=== PATIENT | male | born 1985 | race Caucasian/White ===

== ENCOUNTER 2016-08-04 17:14 | Inpatient (IN) | payer OTHER ==
[2016-08-04 21:58] VITALS: BMI 24.7
--- NOTE | 2016-08-04 22:01 | HP ---
COWS - Scale Resting Pulse: 1= [place] 81-100 Sweatin=Flushed/Facial Moisture Restless Observation: 1= Difficult to Sit Still Pupil Size: 0= Normal to Room Light Bone or Joint Aches: 1= Mild Discomfort Runny Nose/ Eye Tearin= Runny Nose/Eyes GI Upset > 30mins: 2= Nausea/Diarrhea Tremor Observation: 1= Tremor [place], Not Seen Yawning Observation: 0= None Anxiety or Irritability: 1=Feels Anxious/Irritable Goose Flesh Skin: 3=Piloerection COWS Score: 14 CIWA Score - CIWA Score Nausea/Vomitin Muscle Tremors: 2 Anxiety: 2 Agitation: 2 Paroxysmal Sweats: 2 Orientation: 1-Uncertain about Date Tacttile Disturbances: 1-Very Mild Itch/Numbness Auditory Disturbances: 0-None Visual Disturbances: 0-None Headache: 2-Mild CIWA-Ar Total Score: 14 Admission [facility] Chief Complaint: WITHDRAWAL SYMPTOMS Allergies/Adverse Reactions: Allergies Allergy/AdvReac Type Severity Reaction Status Date / Time No Known Allergies Allergy Verified 08/04/16 21:57 History of Present Illness: 31 Y.O. MAN WITH A 5 YEAR HISTORY OF ALCOHOL AND OPIOID DEPENDENCE IS HERE FOR DETOX. THIS IS HIS FIRST ADMISSION TO [facility] BUT REPORTS HE WAS AT [facility] 2 MONTHS AGO FOR DETOX & REHAB. Exam Limitations: No Limitations - Ebola screening Have you traveled outside of the country in the last 21 days: No Have you had contact with anyone from an Ebola affected area: No Do you have a fever: No - Review of Systems Constitutional: Chills, Diaphoresis, Malaise, Night Sweats, Changes in sleep EENT: reports: Tearing, Nose Congestion Respiratory: reports: No Symptoms reported Cardiac: reports: No Symptoms Reported GI: reports: Nausea, Abdominal cramping : reports: No Symptoms Reported Musculoskeletal: reports: Back Pain Integumentary: reports: No Symptoms Reported Neuro: reports: Headache, Tremors Endocrine: reports: No Symptoms Reported Hematology: reports: No Symptoms Reported Psychiatric: reports: Mood/Affect Appropiate, Anxious, other (INSOMNIA) Other Systems: Reviewed and Negative Patient History - Patient Medical History Hx Anemia: No Hx Asthma: No Hx Chronic Obstructive Pulmonary Disease (COPD): No Hx Cancer: No Hx Cardiac Disorders: No Hx Congestive Heart Failure: No Hx Hypertension: No Hx Hypercholesterolemia: No Hx Pacemaker: No HX Cerebrovascular Accident: No Hx Seizures: No Hx Dementia: No Hx Diabetes: No Hx Gastrointestinal Disorders: Yes (GERD ) Hx Liver Disease: No Hx Genitourinary Disorders: No Hx Sexually Transmitted Disorders: No Hx Renal Disease (ESRD): No Hx Thyroid Disease: No Hx Human Immunodeficiency Virus (HIV): No (NEG ) Hx Hepatitis C: No (NEG ) Hx Depression: Yes Hx Suicide Attempt: No Hx Bipolar Disorder: No Hx Schizophrenia: No - Patient Surgical History Past Surgical History: No - PPD History Previous Implant?: Yes Documented Results: Negative w/o proof PPD to be Administered?: Yes - Reproductive History Patient is a Female of Child Bearing Age (11 -55 yrs old): No - Smoking Cessation Smoking history: Current every day smoker Have you smoked in the past 12 months: Yes Aproximately how many cigarettes per day: 3 Hx Chewing Tobacco Use: No Initiated information on smoking cessation: Yes 'Breaking Loose' booklet given: 08/04/16 - Substance & Tx. History Hx Alcohol Use: Yes Hx Substance Use: Yes Substance Use Type: Alcohol, Heroin Hx Substance Use Treatment: Yes - Substances Abused Alcohol Route: Oral Frequency: Daily Amount used: 1 6 PACK OF BEER DAILY Age of first use: 17 Date of Last Use: 08/04/16 Heroin Route: Inhalation Frequency: Daily Amount used: 1 BUNDLE Age of first use: 24 Date of Last Use: 08/04/16 Family Disease History - Family Disease History Family Disease History: Diabetes: Grandparent, CA: Mother Admission Physical Exam BHS - Vital Signs Vital Signs: Last Vital Signs Temp Pulse Resp BP Pulse Ox 97.0 F L 87 20 120/79 08/04/16 21:54 08/04/16 21:54 08/04/16 21:54 08/04/16 21:54 - Physical General Appearance: Yes: Irritable, Anxious HEENTM: Yes: Hearing grossly Normal, Normocephalic, Normal Voice Respiratory: Yes: Lungs Clear, Normal Breath Sounds, No Respiratory Distress, No Accessory Muscle Use Neck: Yes: No masses,lesions,Nodules Breast: Yes: Breast Exam Deferred Cardiology: Yes: Regular Rhythm, Regular Rate Abdominal: Yes: Flat, Soft Genitourinary: Yes: Other (NO COMPLAINTS REPORTED) Back: Yes: Normal Inspection Musculoskeletal: Yes: Back pain Extremities: Yes: Normal Inspection, Normal Range of Motion, Non-Tender Neurological: Yes: Alert, Normal Mood/Affect, Normal Response Integumentary: Yes: Normal Color, Dry, Warm Lymphatic: Yes: Within Normal Limits - Addiitonal Findings: Last Vital Signs Temp Pulse Resp BP Pulse Ox 97.0 F L 87 20 120/79 08/04/16 21:54 08/04/16 21:54 08/04/16 21:54 08/04/16 21:54 - Diagnostic (1) Alcohol dependence with uncomplicated withdrawal Current Visit: Yes Status: Chronic (2) Opioid dependence with withdrawal Current Visit: Yes Status: Chronic (3) GERD (gastroesophageal reflux disease) Current Visit: Yes Status: Chronic Cleared for Admission S - Detox or Rehab [facility] Level of Care: Medically Managed Detox Regimen/Protocol: Methadone/Librium
[2016-08-04] MEDS ORDERED: MAGNESIUM HYDROX 2400MG/30ML ORAL SUSPENSION 30 ML CUP PO PRN (22:08)
[2016-08-04] MEDS ORDERED: MAG HYDROX/AL HYDROX/SIMETH 30 ML UNIT-DOSE CUP PO PRN (22:08)
[2016-08-04] MEDS ORDERED: METHADONE HCL 10 MG TABLET (FOR DETOX USE ONLY) PO ONE ×2 (22:08→23:00)
[2016-08-04] MEDS ORDERED: guaiFENesin/D-METHORPHAN HB 10 ML UNIT-DOSE CUPS PO PRN (22:08)
[2016-08-04] MEDS ORDERED: IBUPROFEN 400 MG TABLET (FP) PO PRN (22:08)
[2016-08-04] MEDS ORDERED: hydrOXYzine PAMOATE 50 MG CAPSULE (FP) PO PRN (22:08)
[2016-08-04] MEDS ORDERED: chlordiazePOXIDE HCL 25 MG CAPSULE PO PRN (22:08)
[2016-08-04] MEDS ORDERED: MENTHOL/PHENOL 1 EACH UD MM PRN (22:08)
[2016-08-04] MEDS ORDERED: ACETAMINOPHEN 325 MG TABLET (FP) PO PRN (22:08)
[2016-08-04] MEDS ORDERED: chlordiazePOXIDE HCL 25 MG CAPSULE PO ONE (22:08)
[2016-08-04] MEDS ORDERED: LOPERAMIDE HCL 2 MG CAPSULE PO PRN (22:08)
[2016-08-04] MEDS ORDERED: MAGNESIUM CITRATE 300 ML BOTTLE PO PRN (22:08)
[2016-08-04] MEDS ORDERED: P-EPHED 60MG/TRIPROLIDI 2.5MG TABLET PO PRN (22:08)
[2016-08-04] MEDS: chlordiazePOXIDE HCL 25 MG CAPSULE PO SCH (23:14)
[2016-08-05] MEDS: chlordiazePOXIDE HCL 25 MG CAPSULE PO SCH ×4 (05:15→22:02)
--- NOTE | 2016-08-05 09:51 | EKG ---
Test Reason : Blood Pressure : / mmHG Vent. Rate : 076 BPM Atrial Rate : 076 BPM P-R Int : 140 ms QRS Dur : 092 ms QT Int : 394 ms P-R-T Axes : 059 063 045 degrees QTc Int : 443 ms NORMAL SINUS RHYTHM NO PREVIOUS ECGS AVAILABLE Confirmed by SYMONE PAREDES MD ([id number]) on 08/05/2016 9:51:11 AM Referred By: Pedro Perez Confirmed By:SYMONE PAREDES MD
[2016-08-05] MEDS ORDERED: METHADONE HCL 10 MG TABLET (FOR DETOX USE ONLY) PO SCH (10:00)
[2016-08-05 10:21] LABS: MCH 29.6 pg (25.7-33.7); MCHC 34.4 g/dl (32.0-35.9); MEAN PLT VOLUME 9.3 fl (7.5-11.1); PLATELET COUNT 144 K/MM3 (134-434); RDW 14.1 % (11.9-15.9); WHITE BLOOD COUNT 4.5 K/mm3 (4.0-10.0)
[2016-08-05] MEDS: PANTOPRAZOLE 20 MG TABLET (FP) PO SCH (10:23)
[2016-08-05] MEDS: PRENATAL VITAMINS W/ FOLIC ACID TABLET (FP) PO SCH (10:23)
[2016-08-05] MEDS: NICOTINE 14 MG/24 HOURS TOPICAL PATCH TD SCH (10:24)
[2016-08-05 11:02] LABS: ALBUMIN 3.6 g/dl (3.4-5.0); ALK PHOS 91 U/L (45-117); ANION GAP 7 (8-16); BILIRUBIN,TOTAL 0.3 mg/dL (0.2-1.0); CALCIUM 8.8 mg/dL (8.5-10.1); CO2 30 mmol/L (21-32); COCKROFT - GAULT 137.59; CREATININE 0.9 mg/dL (0.7-1.3); GLUCOSE,RANDOM 92 mg/dL (74-106); SGOT/AST 27 U/L (15-37); SGPT/ALT 35 U/L (12-78); TOT PROT 6.7 g/dl (6.4-8.2)
--- NOTE | 2016-08-05 13:55 | PN ---
[facility] CIWA - CIWA Score Nausea/Vomitin-No Nausea/No Vomiting Muscle Tremors: 4-Moderate,w/Arms Extend Anxiety: 4-Mod. Anxious/Guarded Agitation: 3 Paroxysmal Sweats: 3 Orientation: 0-Oriented Tacttile Disturbances: 0-None Auditory Disturbances: 0-None Visual Disturbances: 0-None Headache: 0-None Present CIWA-Ar Total Score: 14 BHS COWS - Scale Resting Pulse: 0= MD 80 or Below Sweatin=Flushed/Facial Moisture Restless Observation: 1= Difficult to Sit Still Pupil Size: 0= Normal to Room Light Bone or Joint Aches: 2= Severe Diffuse Aches Runny Nose/ Eye Tearin= Nasal Congestion GI Upset > 30mins: 1= Stomach Cramp Tremor Observation of Outstretched Hands: 2= Slight Tremor Visible Yawning Observation: 2= >3x During Session Anxiety or Irritability: 2=Irritable/Anxious Goose Flesh Skin: 0=Smooth Skin COWS Score: 13 S Progress Note (SOAP) Subjective: shakes sweats interrupted seep body aches irritable Objective: 08/05/16 13:57 Vital Signs Temperature 97.5 F L 08/05/16 10:10 Pulse Rate 80 08/05/16 10:10 Respiratory Rate 16 08/05/16 10:10 Blood Pressure 117/64 08/05/16 10:10 O2 Sat by Pulse Oximetry (%) Laboratory Tests 08/05/16 08/05/16 08/05/16 07:50 07:50 07:50 WBC 4.5 RBC 4.57 Hgb 13.5 Hct 39.3 MCV 86.0 MCHC 34.4 RDW 14.1 Plt Count 144 MPV 9.3 Sodium 141 Potassium 4.0 Chloride 104 Carbon Dioxide 30 Anion Gap 7 L BUN 16 Creatinine 0.9 Creat Clearance w eGFR > 60 Random Glucose 92 Calcium 8.8 Total Bilirubin 0.3 AST 27 ALT 35 Alkaline Phosphatase 91 Total Protein 6.7 Albumin 3.6 RPR Titer Nonreactive labs pending awake/alert ambulating no acute distress Assessment: 08/05/16 13:59 withdrawal sx Plan: continue detox increase fluids labs pending
[2016-08-05 16:41] LABS: URINE APPEARANCE CLEAR; URINE BILIRUBIN NEGATIVE (NEGATIVE); URINE BLOOD NEGATIVE (NEGATIVE); URINE COLOR YELLOW; URINE GLUCOSE (UA) NEGATIVE (NEGATIVE); URINE KETONE NEGATIVE (NEGATIVE); URINE LEUK ESTERASE NEGATIVE (NEGATIVE); URINE NITRITE NEGATIVE (NEGATIVE); URINE PROTEIN NEGATIVE (NEGATIVE); URINE UROBILINOGEN NEGATIVE E.U./dl (0.2-1.0)
--- NOTE | 2016-08-05 17:22 | CONSULT ---
[facility] Psychiatric Consult - Data Date of interview: 08/05/16 Admission source: [facility] Identifying data: First admission to [facility] for this 31 y/o male seeking detox treatment for alcohol and heroin dependence.Patient is single without children,domiciled,unemployed and reportedly deprived of any source of income. Substance Abuse History: - Smoking Cessation. Smoking history: Current every day smoker. Have you smoked in the past 12 months: Yes. Aproximately how many cigarettes per day: 3. Hx Chewing Tobacco Use: No. Initiated information on smoking cessation: Yes. 'Breaking Loose' booklet given: 08/04/16. - Substance & Tx. History. Hx Alcohol Use: Yes. Hx Substance Use: Yes. Substance Use Type : Alcohol, Heroin. Hx Substance Use Treatment: Yes. - Substances Abused. Alcohol. Route: Oral. Frequency: Daily. Amount used: 1 6 PACK OF BEER DAILY. Age of first use: 17. Date of Last Use: 08/04/16. Heroin. Route: Inhalation. Frequency: Daily. Amount used: 1 BUNDLE. Age of first use: 24. Date of Last Use: 08/04/16. Confirmed by patient. Medical History: GERD. Psychiatric History: Patient denies. Physical/Sexual Abuse/Trauma History: Patient denies. Additional Comment: Utox not available. Mental Status Exam - Mental Status Exam Alert and Oriented to: Time, Place, Person Cognitive Function: Good Patient Appearance: Well Groomed Mood: Withdrawn, Hopeful Affect: Appropriate, Normal Range Patient Behavior: Fatigued, Cooperative Speech Pattern: Clear Voice Loudness: Normal Thought Process: Goal Oriented Thought Disorder: Not Present Hallucinations: Denies Suicidal Ideation: Denies Homicidal Ideation: Denies Insight/Judgement: Poor Sleep: Poorly, Difficulty falling asleep (requests seroquel ; admits to a history of favorable response ) Appetite: Good Muscle strength/Tone: Normal Gait/Station: Normal Psychiatric Findings - Problem List ([place] 1, 2,3) (1) Alcohol dependence with uncomplicated withdrawal Current Visit: Yes Status: Acute (2) Opioid dependence with withdrawal Current Visit: Yes Status: Acute (3) Nicotine dependence Current Visit: Yes Status: Acute (4) GERD (gastroesophageal reflux disease) Current Visit: Yes Status: Chronic (5) Insomnia Current Visit: Yes Status: Acute - Initial Treatment Plan Initial Treatment Plan: Psychoieducation.Detoxification.Seroquel 100 mg po hs.Courtesy Driver effects/benefits discussed with the patient.He agrees with this careplan.Observation.
[2016-08-05] MEDS: THIAMINE HCL 100 MG TABLET (FP) PO SCH (22:02)
[2016-08-05] MEDS: QUEtiapine FUMARATE 100 MG TABLET (FP) PO SCH ×2 (22:27→23:06)
[2016-08-06] MEDS: chlordiazePOXIDE HCL 25 MG CAPSULE PO SCH ×3 (05:23→17:23)
[2016-08-06] MEDS: METHADONE HCL 5 MG TABLET (FOR DETOX USE ONLY) PO SCH (10:30)
[2016-08-06] MEDS: PANTOPRAZOLE 20 MG TABLET (FP) PO SCH (10:30)
[2016-08-06] MEDS: PRENATAL VITAMINS W/ FOLIC ACID TABLET (FP) PO SCH (10:30)
[2016-08-06] MEDS: NICOTINE 14 MG/24 HOURS TOPICAL PATCH TD SCH (10:32)
[2016-08-06] MEDS: NICOTINE POLACRILEX 2 MG GUM BC PRN (10:33)
--- NOTE | 2016-08-06 14:47 | PN ---
[facility] CIWA - CIWA Score Nausea/Vomitin-Mild Nausea/No Vomiting Muscle Tremors: 4-Moderate,w/Arms Extend Anxiety: 4-Mod. Anxious/Guarded Agitation: 3 Paroxysmal Sweats: 3 Orientation: 0-Oriented Tacttile Disturbances: 0-None Auditory Disturbances: 0-None Visual Disturbances: 0-None Headache: 0-None Present CIWA-Ar Total Score: 15 BHS COWS - Scale Resting Pulse: 0= NC 80 or Below Sweatin=Flushed/Facial Moisture Restless Observation: 1= Difficult to Sit Still Pupil Size: 0= Normal to Room Light Bone or Joint Aches: 2= Severe Diffuse Aches Runny Nose/ Eye Tearin= Runny Nose/Eyes GI Upset > 30mins: 2= Nausea/Diarrhea Tremor Observation of Outstretched Hands: 2= Slight Tremor Visible Yawning Observation: 1= 1-2x During Session Anxiety or Irritability: 2=Irritable/Anxious Goose Flesh Skin: 0=Smooth Skin COWS Score: 14 S Progress Note (SOAP) Subjective: Anxiety,tremors,sweating,interrupted sleep,restless,body aches. Objective: 08/06/16 14:46 Vital Signs - 8 hr 08/06/16 08/06/16 10:00 14:18 Temperature 96.1 F L 98.1 F Pulse Rate 94 H 82 Respiratory 18 18 Rate Blood Pressure 116/75 113/69 Laboratory Tests 08/05/16 08/05/16 08/05/16 07:50 07:50 07:50 WBC 4.5 RBC 4.57 Hgb 13.5 Hct 39.3 MCV 86.0 MCHC 34.4 RDW 14.1 Plt Count 144 MPV 9.3 Sodium 141 Potassium 4.0 Chloride 104 Carbon Dioxide 30 Anion Gap 7 L BUN 16 Creatinine 0.9 Creat Clearance w eGFR > 60 Random Glucose 92 Calcium 8.8 Total Bilirubin 0.3 AST 27 ALT 35 Alkaline Phosphatase 91 Total Protein 6.7 Albumin 3.6 Urine Color Urine Appearance Urine pH Ur Specific [place] Urine Protein Urine Glucose (UA) Urine Ketones Urine Blood Urine Nitrite Urine Bilirubin Urine Urobilinogen Ur Leukocyte Esterase RPR Titer Nonreactive 08/05/16 14:30 WBC RBC Hgb Hct MCV MCHC RDW Plt Count MPV Sodium Potassium Chloride Carbon Dioxide Anion Gap BUN Creatinine Creat Clearance w eGFR Random Glucose Calcium Total Bilirubin AST ALT Alkaline Phosphatase Total Protein Albumin Urine Color Yellow Urine Appearance Clear Urine pH 7.0 Ur Specific [place] 1.020 Urine Protein Negative Urine Glucose (UA) Negative Urine Ketones Negative Urine Blood Negative Urine Nitrite Negative Urine Bilirubin Negative Urine Urobilinogen Negative Ur Leukocyte Esterase Negative RPR Titer labs noted Assessment: 08/06/16 14:46 Withdrawal sx. Plan: continue detox
[2016-08-06] MEDS: QUEtiapine FUMARATE 100 MG TABLET (FP) PO SCH (22:03)
[2016-08-06] MEDS: chlordiazePOXIDE 5 MG CAPSULE PO SCH (22:03)
[2016-08-06] MEDS: THIAMINE HCL 100 MG TABLET (FP) PO SCH (22:03)
[2016-08-06] MEDS ORDERED: RANITIDINE HCL 150 MG TABLET (FP) PO ONE (23:09)
[2016-08-07] MEDS: chlordiazePOXIDE 5 MG CAPSULE PO SCH ×3 (05:33→17:45)
[2016-08-07] MEDS: METHADONE HCL 5 MG TABLET (FOR DETOX USE ONLY) PO SCH (10:55)
[2016-08-07] MEDS: PRENATAL VITAMINS W/ FOLIC ACID TABLET (FP) PO SCH (10:55)
[2016-08-07] MEDS: NICOTINE 14 MG/24 HOURS TOPICAL PATCH TD SCH (10:55)
[2016-08-07] MEDS: PANTOPRAZOLE 20 MG TABLET (FP) PO SCH (10:58)
--- NOTE | 2016-08-07 11:48 | PN ---
BHS Progress Note (SOAP) Subjective: Sweating,interrupted sleep,restless Objective: 08/07/16 11:47 Vital Signs - 8 hr 08/07/16 08/07/16 06:00 10:00 Temperature 97.7 F 98.2 F Pulse Rate 54 L 107 H Respiratory 18 20 Rate Blood Pressure 109/59 111/65 Laboratory Tests 08/05/16 08/05/16 08/05/16 07:50 07:50 07:50 WBC 4.5 RBC 4.57 Hgb 13.5 Hct 39.3 MCV 86.0 MCHC 34.4 RDW 14.1 Plt Count 144 MPV 9.3 Sodium 141 Potassium 4.0 Chloride 104 Carbon Dioxide 30 Anion Gap 7 L BUN 16 Creatinine 0.9 Creat Clearance w eGFR > 60 Random Glucose 92 Calcium 8.8 Total Bilirubin 0.3 AST 27 ALT 35 Alkaline Phosphatase 91 Total Protein 6.7 Albumin 3.6 Urine Color Urine Appearance Urine pH Ur Specific [place] Urine Protein Urine Glucose (UA) Urine Ketones Urine Blood Urine Nitrite Urine Bilirubin Urine Urobilinogen Ur Leukocyte Esterase RPR Titer Nonreactive 08/05/16 14:30 WBC RBC Hgb Hct MCV MCHC RDW Plt Count MPV Sodium Potassium Chloride Carbon Dioxide Anion Gap BUN Creatinine Creat Clearance w eGFR Random Glucose Calcium Total Bilirubin AST ALT Alkaline Phosphatase Total Protein Albumin Urine Color Yellow Urine Appearance Clear Urine pH 7.0 Ur Specific [place] 1.020 Urine Protein Negative Urine Glucose (UA) Negative Urine Ketones Negative Urine Blood Negative Urine Nitrite Negative Urine Bilirubin Negative Urine Urobilinogen Negative Ur Leukocyte Esterase Negative RPR Titer labs noted Assessment: 08/07/16 11:47 Withdrawal sx. Plan: Continue detox
[2016-08-07] MEDS ORDERED: PANTOPRAZOLE 20 MG TABLET (FP) PO ONE (15:39)
[2016-08-07] MEDS ORDERED: RANITIDINE HCL 150 MG TABLET (FP) PO ONE (15:40)
[2016-08-07] MEDS: diphenhydrAMINE HCL 50 MG CAPSULE PO PRN (22:12)
[2016-08-07] MEDS: QUEtiapine FUMARATE 100 MG TABLET (FP) PO SCH (22:12)
[2016-08-07] MEDS: THIAMINE HCL 100 MG TABLET (FP) PO SCH (22:12)
[2016-08-07] MEDS: RANITIDINE HCL 150 MG TABLET (FP) PO SCH (22:42)
[2016-08-07] MEDS: chlordiazePOXIDE HCL 10 MG CAPSULE PO SCH (22:43)
[2016-08-07] MEDS: NICOTINE POLACRILEX 2 MG GUM BC PRN (22:58)
[2016-08-08] MEDS: chlordiazePOXIDE HCL 10 MG CAPSULE PO SCH ×3 (05:09→19:15)
--- NOTE | 2016-08-08 09:20 | PN ---
BHS Progress Note (SOAP) Subjective: feeling better little sweats Objective: 08/08/16 09:19 Vital Signs Temperature 97.3 F L 08/08/16 06:40 Pulse Rate 61 08/08/16 06:40 Respiratory Rate 16 08/08/16 06:40 Blood Pressure 102/63 08/08/16 06:40 O2 Sat by Pulse Oximetry (%) awake/alert ambulating no acute distress Assessment: 08/08/16 09:19 withdrawal sx Plan: continue detox increase fluids d/c in am
[2016-08-08] MEDS ORDERED: PANTOPRAZOLE 40 MG TABLET (FP) PO SCH (10:00)
[2016-08-08] MEDS ORDERED: METHADONE HCL 10 MG TABLET (FOR DETOX USE ONLY) PO SCH (10:00)
[2016-08-08] MEDS: NICOTINE 14 MG/24 HOURS TOPICAL PATCH TD SCH (10:08)
[2016-08-08] MEDS: PRENATAL VITAMINS W/ FOLIC ACID TABLET (FP) PO SCH (10:08)
[2016-08-08] MEDS: NICOTINE POLACRILEX 2 MG GUM BC PRN (10:09)
[2016-08-08] MEDS: RANITIDINE HCL 150 MG TABLET (FP) PO SCH ×2 (12:27→22:01)
[2016-08-08] MEDS: THIAMINE HCL 100 MG TABLET (FP) PO SCH (22:01)
[2016-08-08] MEDS: QUEtiapine FUMARATE 100 MG TABLET (FP) PO SCH (22:01)
[2016-08-08] MEDS: diphenhydrAMINE HCL 50 MG CAPSULE PO PRN (22:01)
[2016-08-09] MEDS ORDERED: METHADONE HCL 5 MG TABLET (FOR DETOX USE ONLY) PO SCH (06:00)
[2016-08-09 06:31] VITALS: BP 98/61; PULSE 81; TEMP 97.3
--- NOTE | 2016-08-09 08:44 | DS ---
[facility] Detox Discharge Summary Admission Date: 08/04/16 Discharge Date: 08/09/16 - History Present History: Alcohol Dependence, Opioid Dependence - Physical Exam Results Vital Signs: Vital Signs Temperature 97.3 F L 08/09/16 06:30 Pulse Rate 81 08/09/16 06:30 Respiratory Rate 18 08/09/16 06:30 Blood Pressure 98/61 08/09/16 06:30 O2 Sat by Pulse Oximetry (%) - Treatment Hospital Course: Detox Protocol Followed, Detoxed Safely, Responded well, Discharged Condition Good, Rehab Referral Accepted - Medication Discharge Medications: Ambulatory Orders Quetiapine Fumarate [Seroquel -] 100 mg PO HS 08/04/16 Quetiapine Fumarate [Seroquel] 100 mg PO HS #30 tablet 08/05/16 - Diagnosis (1) Alcohol dependence with uncomplicated withdrawal Current Visit: Yes Status: Chronic (2) Insomnia Current Visit: Yes Status: Chronic (3) Nicotine dependence Current Visit: Yes Status: Chronic Qualifiers: Nicotine product type: cigarettes Substance use status: uncomplicated Qualified Code(s): F17.210 - Nicotine dependence, cigarettes, uncomplicated (4) Opioid dependence with withdrawal Current Visit: Yes Status: Chronic (5) GERD (gastroesophageal reflux disease) Current Visit: Yes Status: Chronic Qualifiers: Esophagitis presence: without esophagitis Qualified Code(s): K21.9 - Gastro-esophageal reflux disease without esophagitis - AMA Did Patient Leave Against Medical Advice: No
== END 2016-08-09 09:46 | disposition home or self-care (01) | DRG 773 ==
LOC: YASAS 17:14 → Y6N 22:12
PROVIDERS: ADMIT Internal Medicine; ATTEND Internal Medicine
PROC: HZ2ZZZZ Detoxification Services for Substance Abuse Treatment (ICD-10-PCS; principal; 2016-08-09)
DX: F11.23 Opioid dependence with withdrawal (principal); F10.230 Alcohol dependence with withdrawal, uncomplicated; F17.210 Nicotine dependence, cigarettes, uncomplicated; G47.00 Insomnia, unspecified; F32.9 Major depressive disorder, single episode, unspecified; K21.9 Gastro-esophageal reflux disease without esophagitis
CPT/HCPCS: 36415; 80053; 81003; 85027; 86593; 93005; 93010

== ENCOUNTER 2019-10-01 16:52 | Inpatient (IN) | payer OTHER ==
[2019-10-01 17:08] VITALS: BMI 24.3
--- NOTE | 2019-10-01 17:12 | PDOC ---
History of Present Illness - General Chief Complaint: Overdose Stated Complaint: OVERDOSE - History of Present Illness Initial Comments: 10/01/19 17:07 34 y/o M KEO from [facility]. Pt lost consciousness at [facility] and was given 4mg intranasal narcan and regained consciousnees. was able to leave the facility, but returned and syncopized again. alert and oriented enough at the time of EMS arrival, to walk onto the stretcher. pt appears ethargic but is arousable to sternal rub and painful stimuli. unable to obtain further hx at this time. PMHx: as noted above ROS: as noted SHx: Denies Etoh, IVDA, tobacco use Allergies: NKDA ROS: GENERAL/CONSTITUTIONAL: No fever or chills. No weakness. HEAD, EYES, EARS, NOSE AND THROAT: No change in vision. No ear pain or discharge. No sore throat. CARDIOVASCULAR: No chest pain or shortness of breath RESPIRATORY: No cough, wheezing, or hemoptysis. GASTROINTESTINAL: No nausea, vomiting, diarrhea or constipation. GENITOURINARY: No dysuria, frequency, or change in urination. MUSCULOSKELETAL: No joint or muscle swelling or pain. No neck or back pain. SKIN: No rash NEUROLOGIC: No headache, vertigo, loss of consciousness, or change in strength/sensation. ENDOCRINE: No increased thirst. No abnormal weight change HEMATOLOGIC/LYMPHATIC: No anemia, easy bleeding, or history of blood clots. ALLERGIC/IMMUNOLOGIC: No hives or skin allergy. PE: GENERAL: lethargic but arousable. HEAD: No signs of trauma, normocephalic, atraumatic EYES: pinpoint pupils. reactive to light ENT: Auricles normal inspection, nares patent, oropharynx clear without exudates. Moist mucosa NECK: Normal ROM, supple, no lymphadenopathy, JVD, or masses LUNGS: clear to auscultation bilaterally HEART: Regular rate and rhythm, normal S1 and S2, no murmurs, rubs or gallops, peripheral pulses normal and equal bilaterally. ABDOMEN: Soft, nontender, normoactive bowel sounds. No guarding, no rebound. No masses EXTREMITIES : bruising right anterior manley and right anecubittal fossa. NEUROLOGICAL: pt responds to painful stimuli.pupils pinpoint but reactive to light. SKIN: Warm, Dry, normal turgor, no rashes or lesions noted Past History - Medical History Allergies/Adverse Reactions: Allergies Allergy/AdvReac Type Severity Reaction Status Date / Time No Known Allergies Allergy Verified 08/04/16 21:57 Home Medications: Ambulatory Orders Quetiapine Fumarate [Seroquel -] 100 mg PO HS 08/04/16 Quetiapine Fumarate [Seroquel] 100 mg PO HS #30 tablet 08/05/16 Pantoprazole Sodium [Protonix -] 40 mg PO DAILY #30 cap 08/09/16 Folic Acid 1 mg PO DAILY #30 tablet 10/03/19 Multivitamin 1 each PO DAILY #30 tablet 10/03/19 Thiamine HCl [Vitamin B-1] 100 mg PO DAILY #30 tablet 10/03/19 Anemia: No Asthma: No Cancer: No Cardiac Disorders: No CVA: No COPD: No CHF: No Dementia: No Diabetes: No GI Disorders: Yes (GERD ) Disorders: No HTN: No Hypercholesterolemia: No Kidney Stones: No Liver Disease: No Seizures: No Thyroid Disease: No - Surgical History Abdominal Surgery: No Appendectomy: No Cardiac Surgery: No Cholecystectomy: No Lung Surgery: No Neurologic Surgery: No Orthopedic Surgery: No - Reproductive History Testicular Surgery: No - Psycho-Social/Smoking History Smoking History: Current every day smoker Have you smoked in the past 12 months: Yes Number of Cigarettes Smoked Daily: 3 'Breaking Loose' booklet given: 08/04/16 ED Treatment Course - LABORATORY CBC & Chemistry Diagram: 10/03/19 07:45 10/03/19 07:45 Medical Decision Making - Medical Decision Making 10/01/19 17:12 34 y/o M BIBEMS from [facility]. Pt lost consciousness at [facility] and was given 4mg intranasal narcan and regained consciousnees. utox head ct cardiac monitoring, etco2 monitoring. 10/01/19 18:29 utox positive for methadone and methamphetamine 10/01/19 20:59 Ct cervical spine shows non displaced ununited fractures of C1 right anterior and posterior neural arches or uncertain acuity. fracture at c-spine at C1 Tigre Martinez neurosurgeon contacted, for consult. 10/01/19 21:45 PT increasingly agitated, insists there is a parasite in his nose 10/01/19 22:37 Neurosurgeon recommending admission for MRI and furthera evaluation received ketamine IM for agitation and being uncooperative pt to be admitted for mri and further evalutation. detox orders can be administered for [facility] if he is admitted. Pt signed out to Dr. Albert 10/04/19 20:22 Discharge - Discharge Information Problems reviewed: Yes Clinical Impression/Diagnosis: Substance abuse C1 cervical fracture Qualifiers: Encounter type: initial encounter Fracture type: closed Fracture morphology: unspecified fracture morphology Fracture alignment: nondisplaced Qualified Code(s): S12.001A - Unspecified nondisplaced fracture of first cervical vertebra, initial encounter for closed fracture Condition: Stable Disposition: AGAINST MEDICAL ADVICE - Follow up/Referral - Patient Discharge Instructions - Post Discharge Activity
[2019-10-01 18:07] LABS: COCAINE, UR NEGATIVE ng/ml (CUTOFF=300); OPIATES, URI NEGATIVE ng/ml (CUTOFF=300); PHENCYCLIDINE,URINE NEGATIVE ng/ml (CUTOFF=25); URINE BARBITURATES NEGATIVE ng/ml (CUTOFF=200); URINE BENZODIAZEPINES NEGATIVE ng/ml (CUTOFF=200)
[2019-10-01 18:22] LABS: METHADONE, UR POSITIVE ng/ml (CUTOFF=300); URINE AMPHETAMINES POSITIVE ng/ml (CUTOFF=500)
--- NOTE | 2019-10-01 18:31 | PDOC ---
Documentation entered by Kurtis Baker SCRIBE, acting as scribe for Jocelyn Landeros MD. Jocelyn Landeros MD: This documentation has been prepared by the Kenyon patel Xhesika, SCRIBE, under my direction and personally reviewed by me in its entirety. I confirm that the documentation accurately reflects all work, treatment, procedures, and medical decision making performed by me. Attending Attestation - Resident Resident Name: Leif Collado - ED Attending Attestation I have performed the following: I have examined & evaluated the patient, The case was reviewed & discussed with the resident, I agree w/resident's findings & plan, Exceptions are as noted - HPI HPI: 10/01/19 17:12 The patient is a 34y/o M with a PMH of alcohol/heroine dependence and GERD who presents to the ED BIBA from [facility] for overdose. Pt lost consciousness while at [facility], was given 4mg intranasal narcan and regained consciousness. Pt is unable to contribute to further history due to his condition. Allergies:NKDA - Physicial Exam PE: 10/01/19 18:28 slender 34 yo male BIBA after passing out while waiting to be evaluated for admission for detox at [facility] head no scalp lacerations neck supple lungs cta b/l cvs [id number] abdomen no rebound extremities no edema, no deformities skin warm and dry neuro pt received narcan and woke up, stood up and used the urinal ,moving all extremities purposefully 10/02/19 02:22 10/02/19 02:23 - Medical Decision Making 10/01/19 21:02 ct scan head negative for any acute intracranial pathology ct scan cervical spine revealed a nondisplaced ununited fractures of the C1 right anterior and posterior neural arches are noted which are of uncertain acuity Additional evaluation using MRI may be considered 10/01/19 21:05 10/01/19 21:[address] surgery [address] Bridgette Martinez and the pt need an MRI Currently he is not cooperating with us and has pulled out his heplock and is insistent he has a parasite in his nose that needs to be taken care off and he states his neck is fine will have to admit for MRI 10/01/19 22:21 pt has multiple substances on board and history of falling tonight with ct scan revealing C! neural arch fractures,uncooperative, and requiring MRI pt given ketamine 10/02/19 01:04 10/02/19 02:19 pt admitted ,wearing c collar Discharge - Discharge Information Problems reviewed: Yes Clinical Impression/Diagnosis: Substance abuse, C1 cervical fracture - Follow up/Referral - Patient Discharge Instructions - Post Discharge Activity
[2019-10-01] MEDS ORDERED: HALOPERIDOL LACTATE 5 MG/ML IM ONE (21:42)
[2019-10-01] MEDS ORDERED: HALOPERIDOL LACTATE 5 MG/ML ONE (21:46)
[2019-10-01] MEDS ORDERED: LORazepam 2 MG/ML SDV VIAL ONE (21:47)
[2019-10-01] MEDS ORDERED: KETAMINE HCL 500 MG/10 ML VIAL ONE (21:57)
[2019-10-01] MEDS ORDERED: KETAMINE HCL 200 MG/20 ML VIAL IM STA (21:59)
--- NOTE | 2019-10-01 22:29 | PDOC ---
*Physical Exam - Vital Signs Last Vital Signs Temp Pulse Resp BP Pulse Ox 97.5 F L 88 19 99/68 100 10/01/19 16:53 10/01/19 16:53 10/01/19 16:53 10/01/19 16:53 10/01/19 16:53 ED Treatment Course - LABORATORY CBC & Chemistry Diagram: 10/01/19 23:20 10/01/19 23:20 - ADDITIONAL ORDERS Additional order review: Laboratory Results 10/01/19 17:31 Opiates Screen Negative Methadone Screen Positive A* Barbiturate Screen Negative Phencyclidine Screen Negative Ur Amphetamines Screen Positive A* MDMA (Ecstasy) Screen Negative Benzodiazepines Screen Negative Cocaine Screen Negative U Marijuana (THC) Screen Negative - Medications Given in the ED: ED Medications Discontinued Medications Generic Name Dose Route Start Last Admin Trade Name Freq PRN Reason Stop Dose Admin Ketamine HCl 300 mg 10/01/19 21:59 10/01/19 22:20 Ketalar - IM 10/01/19 22:00 300 mg ONCE STA Administration Medical Decision Making - Medical Decision Making 10/01/19 22:26 Signed out to me by Dr. Collado. Ranjeet Martino is a 34M with [facility] polysubstance drug use presented to [facility] for drug rehab, had syncopal episode and sent to [facility]. CT head/c-spine shows C1 A/P fracture. Dr. Martinez with [facility] consulted, recommends admission and MRI. Patient refusing all care and is agitated, real risk of harm to self and staff. Patient given ketamine for anxiolysis and agitation. Plan is to get admission labs, CXR, ECG, c-collar placement, and then admit to Med Surg for NSRG f/u. 10/02/19 01:05 Ketamine wore off quickly, resting comfortably in bed and continually removes telemetry and moving in bed. Patient continues to refuse to wear c-collar despite advisory that paralysis could be permanent. Actively resists attempts to place. Signed out to Dr. Jairo Rodriguez at bedside for Med/Surg admission with AM MRI. 10/02/19 02:12 Patient remains agitated. Bief discussion again regarding c-collar, patient agrees. Placed in C-collar and given haldol and Ativan IM per patient request for anxiolysis. C-spine secured and patient remains on telemetry. Librium not given per IM order as patient given Ativan. Patient sleeping, closely monitoring VS. 10/02/19 06:07 Rested comfortably overnight, no acute events overnight, no tele events. C-collar remains in place and secured. Discharge - Discharge Information Problems reviewed: Yes Clinical Impression/Diagnosis: Substance abuse C1 cervical fracture Qualifiers: Encounter type: initial encounter Fracture type: closed Fracture morphology: unspecified fracture morphology Fracture alignment: nondisplaced Qualified Code(s): S12.001A - Unspecified nondisplaced fracture of first cervical vertebra, initial encounter for closed fracture - Follow up/Referral - Patient Discharge Instructions - Post Discharge Activity
[2019-10-01 23:36] LABS: BASO % 0.6 % (0-2.0); EOS % 0.8 % (0-4.5); HEMATOCRIT 37.4 % (35.4-49); HEMOGLOBIN 12.5 GM/dL (11.7-16.9); LYMPH % 31.1 % (8-40); MCH 30.5 pg (25.7-33.7); MCHC 33.4 g/dl (32.0-35.9); MEAN CELL VOLUME 91.4 fl (80-96); MEAN PLT VOLUME 8.2 fl (7.5-11.1); MONO % 9.8 % (3.8-10.2); NEUT % 57.7 % (42.8-82.8); PLATELET COUNT 220 K/MM3 (134-434); RDW 12.8 % (11.9-15.9)
[2019-10-02 00:12] LABS: ALBUMIN 3.3 g/dl (3.4-5.0); BILIRUBIN,TOTAL 0.3 mg/dL (0.2-1); BLOOD UREA NITROGEN 7.8 mg/dL (7-18); CALCIUM 8.7 mg/dL (8.5-10.1); CREATININE 0.7 mg/dL (0.55-1.3); POTASSIUM 3.3 mmol/L (3.5-5.1); TOT PROT 6.6 g/dl (6.4-8.2)
[2019-10-02] MEDS ORDERED: POTASSIUM CHLORIDE TABS 20 MEQ TABLET.ER (FP) PO ONE ×2 (00:48→01:37)
[2019-10-02] MEDS ORDERED: LACTATED RINGERS SOLUTION 1,000 ML IV SCH (01:45)
[2019-10-02] MEDS ORDERED: chlordiazePOXIDE HCL 10 MG CAPSULE PO PRN (01:54)
[2019-10-02] MEDS ORDERED: HALOPERIDOL LACTATE 5 MG/ML IM ONE (02:01)
--- NOTE | 2019-10-02 02:02 | HP ---
CHIEF COMPLAINT: loss of consciousness because of possible overdose PCP:?? HISTORY OF PRESENT ILLNESS: Pt is a 34 yo M with PMH of polysubstance abuse (alcohol and opioid - i.e. heroin) and GERD who was BIBEMS from [facility] after the pt lost consciousness 2/2 a likely overdose. The pt was found to first lose consciousness at [facility], for which he was treated with 4mg of intranasal narcan and regained consciousness. The pt then left the facility but arrived at [facility] again and syncopized again. Pt was noted to be lethargic but arousable on arrival to the ED. Pt reports some difficulty sitting still, some mild discomfort, mild nasal congestion, mild diffuse bone/joint aches, increased anxiousness and feeling irritable. Denies diaphoresis, tremor, n/v, tactile/visual/auditory disturbances, and fatigue/yawning. Hx is limited as pt is poor historian and refusal to participate in history taking at times. Pt found have non-displaced, ununited fracture of C1 on CT of cervical spine. Pt refusing to wear cervical collar and also noted to pull out his IV twice in the ED. Denies pain in cervical region. ER course was notable for: (1)utox + for methadone and methamphetamine (2)CT cervical spine shows non displaced ununited fractures of C1 right anterior and posterior neural arches of uncertain acuity. fracture at c-spine at C1 (3)received ketamine IM for agitation and being uncooperative; given ativan as well Recent Travel: none PAST MEDICAL HISTORY: as per HPI PAST SURGICAL HISTORY: none FAMILY HISTORY: non-contributory Social History: hx of polysusbtance abuse Smoking: denies Alcohol: limited hx; reports having "hard liquor like vodka" yesterday Drugs: reports heroine and xanax use; reports "dabbling" with other recreational drugs but refuses to name other drugs Allergies No Known Allergies Allergy (Verified 08/04/16 21:57) HOME MEDICATIONS: Home Medications Medication Instructions Recorded Quetiapine Fumarate [Seroquel -] 100 mg PO HS 08/04/16 Quetiapine Fumarate [Seroquel] 100 mg PO HS #30 tablet 08/05/16 Pantoprazole Sodium [Protonix -] 40 mg PO DAILY #30 cap 08/09/16 REVIEW OF SYSTEMS As per HPI. PHYSICAL EXAMINATION Vital Signs - 24 hr 10/01/19 16:53 Temperature 97.5 F L Pulse Rate 88 Respiratory 19 Rate Blood Pressure 99/68 O2 Sat by Pulse 100 Oximetry (%) GENERAL: Awake, alert, and fully oriented; appears mildly agitated and anxious HEAD: NCAT EYES: PERRLA, EOMI, sclera white, conjunctiva clear. EARS, NOSE, THROAT: Oropharynx clear without exudates. Moist mucous membranes. Intranasal erythema noted. Neck: Supple; trachea midline; no paraspinal or spinal tenderness to palpation of cervical region LUNGS: Breath sounds equal, clear to auscultation bilaterally. No wheezes, and no crackles. No accessory muscle use. HEART: Regular rate and rhythm, normal S1 and S2 without murmur, rub or gallop. ABDOMEN: Soft, nontender, not distended, normoactive bowel sounds MUSCULOSKELETAL: moving all extremities spontaneously and equally UPPER EXTREMITIES: 2+ pulses, warm, well-perfused. Pt with chronic swelling of R elbow 2/2 to trauma, no echymosis appreciated LOWER EXTREMITIES: 2+ pulses, warm, well-perfused. No calf tenderness. No peripheral edema. NEUROLOGICAL: Sensation grossly intact. PSYCHIATRIC: pt agitated, non-cooperative SKIN: Warm, dry, no rashes or lesions noted Laboratory Results - last 24 hr 10/01/19 10/01/19 10/01/19 17:31 23:20 23:20 WBC 4.0 RBC 4.10 Hgb 12.5 Hct 37.4 MCV 91.4 MCH 30.5 MCHC 33.4 RDW 12.8 Plt Count 220 D MPV 8.2 D Absolute Neuts (auto) 2.3 Neutrophils % 57.7 Lymphocytes % 31.1 Monocytes % 9.8 Eosinophils % 0.8 Basophils % 0.6 Nucleated RBC % 0 Sodium Potassium Chloride Carbon Dioxide Anion Gap BUN Creatinine Est GFR (CKD-EPI)AfAm Est GFR (CKD-EPI)NonAf Random Glucose Calcium Total Bilirubin AST ALT Alkaline Phosphatase Total Protein Albumin Opiates Screen Negative Methadone Screen Positive A* Acetaminophen < 2.0 Barbiturate Screen Negative Phencyclidine Screen Negative Ur Amphetamines Screen Positive A* MDMA (Ecstasy) Screen Negative Benzodiazepines Screen Negative Cocaine Screen Negative U Marijuana (THC) Screen Negative Blood Type Antibody Screen 10/01/19 10/01/19 23:20 23:20 WBC RBC Hgb Hct MCV MCH MCHC RDW Plt Count MPV Absolute Neuts (auto) Neutrophils % Lymphocytes % Monocytes % Eosinophils % Basophils % Nucleated RBC % Sodium 146 H Potassium 3.3 L Chloride 111 H Carbon Dioxide 26 Anion Gap 9 BUN 7.8 Creatinine 0.7 Est GFR (CKD-EPI)AfAm 141.70 Est GFR (CKD-EPI)NonAf 122.26 Random Glucose 113 H Calcium 8.7 Total Bilirubin 0.3 AST 55 H ALT 50 Alkaline Phosphatase 114 Total Protein 6.6 Albumin 3.3 L Opiates Screen Methadone Screen Acetaminophen Barbiturate Screen Phencyclidine Screen Ur Amphetamines Screen MDMA (Ecstasy) Screen Benzodiazepines Screen Cocaine Screen U Marijuana (THC) Screen Blood Type B POSITIVE Antibody Screen Negative ASSESSMENT/PLAN: Pt is a 34 yo M with PMH of polysubstance abuse (alcohol and opioid - i.e. heroin) being admitted for further evaluation of ununited fractures of C1 right anterior and posterior neural arches. #Cervical Fracture s/p mechanical fall vs chronic cervical spondylosis CT Cervical Spine - ununited fractures of C1 right anterior and posterior neural arches; mild L C3-C4 foraminal stenosis - MRI C-Spine without contrast to further eval fracture - Neurosurgery (Dr. Tigre Martinez) consulted; will evaluate pt - CK found to be elavated (>700) - cannot r/o rhabdo; LR @125 cc/hr #Polysubstance Abuse (notable for EtOH, opioids - i.e. heroine) COWS score 10; CIWA score 2 - methadone 150 daily - librium prn for CIWA > 6 - monitor for changes in COWS + CIWA score - folic acid, thiamine #DVT PPx - enoxaparin 40 sq daily #FEN -F - LR 125 cc/hr -E - monitor lytes; replete prn -N - regular diet #Dispo - admit to med-surg Visit type - Emergency Visit Emergency Visit: Yes ED Registration Date: 10/02/19 Care time: The patient presented to the Emergency Department on the above date and was hospitalized for further evaluation of their emergent condition. - New Patient This patient is new to me today: Yes Date on this admission: 10/02/19 - Critical Care Critical Care patient: No ATTENDING PHYSICIAN STATEMENT I saw and evaluated the patient. I reviewed the resident's note and discussed the case with the resident. I agree with the resident's findings and plan as documented. SUBJECTIVE: OBJECTIVE: ASSESSMENT AND PLAN:
[2019-10-02] MEDS ORDERED: HALOPERIDOL LACTATE 5 MG/ML ONE (02:04)
[2019-10-02] MEDS ORDERED: LORazepam 2 MG/ML SDV VIAL ONE (02:05)
[2019-10-02 06:38] LABS: HEMATOCRIT 40.8 % (35.4-49); HEMOGLOBIN 13.5 GM/dL (11.7-16.9); MCH 30.1 pg (25.7-33.7); MEAN CELL VOLUME 91.2 fl (80-96); MEAN PLT VOLUME 8.2 fl (7.5-11.1); PLATELET COUNT 212 K/MM3 (134-434); RBC 4.48 M/mm3 (4.00-5.60); RDW 12.7 % (11.9-15.9); WHITE BLOOD COUNT 4.4 K/mm3 (4.0-10.0)
--- NOTE | 2019-10-02 06:40 | PN ---
Teaching Attending Note Name of Resident: Melissa Haas ATTENDING PHYSICIAN STATEMENT I saw and evaluated the patient. I reviewed the resident's note and discussed the case with the resident. I agree with the resident's findings and plan as documented. SUBJECTIVE: 34 yo M with PMH of polysubstance abuse 9 ETOH, heroin) was BIBA from [facility] due to drug overdose. he was found on the floor unresponsive and was given narcan and regained consciousness. upon arrival to ED he was lethargic but abusable. Patient is non cooperative with history and physical exam. he is combative at times. He removed IV line in front me and resident staff upon evaluation. He states that he has infection in his nose which irritates him. denies chest pain, SOB, nausea, vomiting,fever. He was found have non-displaced, ununited fracture of C1 on CT of cervical spine. Pt refusing to wear cervical collar OBJECTIVE: Last Vital Signs Temp Pulse Resp BP Pulse Ox 98.9 F 78 15 118/72 100 10/02/19 05:57 10/02/19 05:57 10/02/19 05:57 10/02/19 05:57 10/02/19 05:57 GENERAL: not in distress awake, alert, normal built . HEAD: No signs of trauma, normocephalic, atraumatic EYES: pinpoint pupils. reactive to light ENT: Auricles normal inspection, nares patent, oropharynx clear without exudates. Moist mucosa NECK: Normal ROM, supple, no lymphadenopathy, JVD, or masses no pain on back cervical rergion LUNGS: clear to auscultation bilaterally HEART: Regular rate and rhythm, normal S1 and S2, no murmurs, rubs or gallops, peripheral pulses normal and equal bilaterally. ABDOMEN: Soft, nontender, normoactive bowel sounds. No guarding, no rebound. No masses EXTREMITIES : bruising right anterior manley and right anecubittal fossa. NEUROLOGICAL: pt responds to painful stimuli.pupils pinpoint but reactive to light. SKIN: Warm, Dry, normal turgor, no rashes or lesions noted ASSESSMENT AND PLAN: Acute encephalopathy likely due to opiod overdosed - improved non-displaced, ununited fracture of C1 on CT of cervical spine mild hypernatremia with hypokalemia hypoalbuminemia Polysubsatnce abuse Admit to floor Neurosurgery was consulted iN ED recommended MRI in AM Cont methadone home dose IV hydration LR 125 ml/hour thiamine folic acid mg,.phos, cpk replace K PO librium ciwa protocol MRI in AM C spine Neurosurgery follow up Psych eval for drug abuse Analgesia PRN DVT ppx Discussed with staff in details
[2019-10-02] MEDS ORDERED: chlordiazePOXIDE HCL 25 MG CAPSULE ONE ×3 (06:48→21:15)
[2019-10-02] MEDS: chlordiazePOXIDE HCL 25 MG CAPSULE PO SCH ×3 (06:51→21:17)
[2019-10-02] MEDS: LACTATED RINGERS SOLUTION 1,000 ML IV SCH (06:51)
[2019-10-02 06:54] LABS: ALBUMIN 3.5 g/dl (3.4-5.0); BILIRUBIN,TOTAL 0.4 mg/dL (0.2-1); BLOOD UREA NITROGEN 9.5 mg/dL (7-18); CREATININE 0.6 mg/dL (0.55-1.3); MAGNESIUM 2.2 mg/dL (1.8-2.4); PHOSPHOROUS 3.2 mg/dL (2.5-4.9); POTASSIUM 3.9 mmol/L (3.5-5.1)
--- NOTE | 2019-10-02 09:11 | PN ---
Progress Note (short form) - Note Progress Note: NEUROSURGERY CONSULT DICTATED Pt examined in ED Chart reviewed History not available as pt does not recall/poor historian Does not recall having a neck fx previously Pt non-compliant with collar PE; AF, VSS HEENT- NC/AT; Neck- supple; Cor- RR; Lungs- CTA B; Abd- benign; Ext- no sign of DVT CN- non-focal; Motor- at least 4+ B UE/LE; Sensation- intact LT; DTR- 2+ Head CT- negative C spine CT- R anterior C-1 comminuted non-displaced fx; age cannot be definitely determined R ant C-1 ring fx, acuity undetermined Given unreliable historian and likely uncooperative/non-compliant patient, should obtain MRI to assess acuity/edema associated with the C1 fx
[2019-10-02] MEDS ORDERED: METHADONE HCL 10 MG TABLET (FOR DETOX USE ONLY) PO SCH (10:00)
[2019-10-02] MEDS: THIAMINE HCL 100 MG TABLET (FP) PO SCH (10:44)
[2019-10-02] MEDS: FOLIC ACID 1 MG TABLET (FP) PO SCH (10:44)
[2019-10-02] MEDS: ENOXAPARIN NA (PORCINE) 40 MG/0.4 ML DISP.SYRIN SQ SCH (11:22)
--- NOTE | 2019-10-02 13:23 | PN ---
Teaching Attending Note Name of Resident: Braxton Fitzgerald ATTENDING PHYSICIAN STATEMENT I saw and evaluated the patient. I reviewed the resident's note and discussed the case with the resident. I agree with the resident's findings and plan as documented. SUBJECTIVE: No complaints. Asking for Methadone. No headache/visual disturbance/limb numbness or weakness/abdominal pain/nausea/vomiting OBJECTIVE: Afebrile, Hemodynamically Stable. Last Vital Signs Temp Pulse Resp BP Pulse Ox 98.8 F 80 15 108/71 99 10/02/19 10:08 10/02/19 10:08 10/02/19 10:08 10/02/19 10:08 10/02/19 10:08 HEENT - Atraumatic, Normocephalic. Heart - S1, S2, RRR Lungs - clear to auscultation Abdomen - Soft, non-tender. Bowel Sounds normal. Extremities - no edema, no calf tenderness. Neuro - Drowsy but rousable to orientation x 3, pupils constricted. Tone/Power normal. Laboratory Results - last 24 hr 10/01/19 10/01/19 10/01/19 17:31 23:20 23:20 WBC 4.0 RBC 4.10 Hgb 12.5 Hct 37.4 MCV 91.4 MCH 30.5 MCHC 33.4 RDW 12.8 Plt Count 220 D MPV 8.2 D Absolute Neuts (auto) 2.3 Neutrophils % 57.7 Lymphocytes % 31.1 Monocytes % 9.8 Eosinophils % 0.8 Basophils % 0.6 Nucleated RBC % 0 Sodium Potassium Chloride Carbon Dioxide Anion Gap BUN Creatinine Est GFR (CKD-EPI)AfAm Est GFR (CKD-EPI)NonAf Random Glucose Calcium Phosphorus Magnesium Total Bilirubin AST ALT Alkaline Phosphatase Creatine Kinase Creatine Kinase Index CK-MB (CK-2) Total Protein Albumin Opiates Screen Negative Methadone Screen Positive A* Acetaminophen < 2.0 Barbiturate Screen Negative Phencyclidine Screen Negative Ur Amphetamines Screen Positive A* MDMA (Ecstasy) Screen Negative Benzodiazepines Screen Negative Cocaine Screen Negative U Marijuana (THC) Screen Negative Blood Type Antibody Screen 10/01/19 10/01/19 10/02/19 23:20 23:20 00:00 WBC RBC Hgb Hct MCV MCH MCHC RDW Plt Count MPV Absolute Neuts (auto) Neutrophils % Lymphocytes % Monocytes % Eosinophils % Basophils % Nucleated RBC % Sodium 146 H Potassium 3.3 L Chloride 111 H Carbon Dioxide 26 Anion Gap 9 BUN 7.8 Creatinine 0.7 Est GFR (CKD-EPI)AfAm 141.70 Est GFR (CKD-EPI)NonAf 122.26 Random Glucose 113 H Calcium 8.7 Phosphorus Magnesium Total Bilirubin 0.3 AST 55 H ALT 50 Alkaline Phosphatase 114 Creatine Kinase Creatine Kinase Index CK-MB (CK-2) Total Protein 6.6 Albumin 3.3 L Opiates Screen Methadone Screen Acetaminophen Barbiturate Screen Phencyclidine Screen Ur Amphetamines Screen MDMA (Ecstasy) Screen Benzodiazepines Screen Cocaine Screen U Marijuana (THC) Screen Blood Type B POSITIVE B POSITIVE Antibody Screen Negative 10/02/19 10/02/19 10/02/19 05:50 05:50 05:50 WBC 4.4 RBC 4.48 Hgb 13.5 Hct 40.8 MCV 91.2 MCH 30.1 MCHC 33.0 RDW 12.7 Plt Count 212 MPV 8.2 Absolute Neuts (auto) Neutrophils % Lymphocytes % Monocytes % Eosinophils % Basophils % Nucleated RBC % Sodium 142 Potassium 3.9 Chloride 107 Carbon Dioxide 28 Anion Gap 7 L BUN 9.5 Creatinine 0.6 Est GFR (CKD-EPI)AfAm 150.97 Est GFR (CKD-EPI)NonAf 130.26 Random Glucose 95 Calcium 9.0 Phosphorus 3.2 Magnesium 2.2 Total Bilirubin 0.4 AST 57 H ALT 51 Alkaline Phosphatase 121 H Creatine Kinase 754 H Creatine Kinase Index 0.6 CK-MB (CK-2) 4.6 H Total Protein 7.0 Albumin 3.5 Opiates Screen Methadone Screen Acetaminophen Barbiturate Screen Phencyclidine Screen Ur Amphetamines Screen MDMA (Ecstasy) Screen Benzodiazepines Screen Cocaine Screen U Marijuana (THC) Screen Blood Type Antibody Screen Current Medications Generic Name Dose Route Start Last Admin Trade Name Freq PRN Reason Stop Dose Admin Chlordiazepoxide HCl 25 mg 10/02/19 05:00 10/02/19 06:51 Librium - PO 10/02/19 21:01 25 mg Q8H GEOFFREY Administration Chlordiazepoxide HCl 10 mg 10/04/19 00:00 Librium - PO 10/04/19 23:59 Q12H PRN Signs/symptoms of Withdrawal Chlordiazepoxide HCl 10 mg 10/02/19 01:54 Librium - PO 10/03/19 23:59 Q8H PRN Signs/symptoms of Withdrawal Chlordiazepoxide HCl 15 mg 10/03/19 05:00 Librium - PO 10/03/19 21:01 Q8H GEOFFREY Chlordiazepoxide HCl 10 mg 10/04/19 05:00 Librium - PO 10/04/19 21:01 Q8H GEOFFREY Chlordiazepoxide HCl 10 mg 10/05/19 05:00 Librium - PO 10/05/19 05:01 ONCE ONE Enoxaparin Sodium 40 mg 10/02/19 10:00 10/02/19 11:22 Lovenox - SQ Not Given DAILY GEOFFREY Folic Acid 1 mg 10/02/19 10:00 10/02/19 10:44 Folic Acid - PO Not Given DAILY [facility] Lactated Ringer's 1,000 mls @ 125 mls/hr 10/02/19 06:39 10/02/19 06:51 Lactated Ringers Solution IV Not Given ASDIR [facility] Methadone HCl 150 mg 10/02/19 10:00 Dolophine - PO DAILY [facility] Thiamine HCl 100 mg 10/02/19 10:00 10/02/19 10:44 Vitamin B1 - PO Not Given DAILY [facility] ASSESSMENT AND PLAN: 34 year old male with history of Polysubstance Abuse (Alcohol, IVDU, on Methadone), sent to the ED from [facility] after an unresponsive episode requiring Narcan. He was found have non-displaced, ununited fracture of C1 on CT of cervical spine. 1. Acute Toxic Encephalopathy likely due to Opioid overdose s/p Narcan at [facility]. More awake - oriented x 2. Pupils still constricted. Hx polysubstance abuse - Methadone currently held. Urine tox - Methadone positive, Amphetamine positive. Addiction medicine consult. 2. Acute Alcohol Withdrawal at - placed on Librium detox protocol Addiction medicine input requested. MVI, Thiamine, Folic Acid. 3. Acute non-displaced, ununited fracture of C1 on CT of cervical spine Refusing C-Spine Collar. Evaluated by Neurosurgry - MRI recommended Neurologicaly intact. 4. R Elbow deformity - appears chronic, not acutely tender. XRay R Elbow requested. 5. L Thyroid Nodule, incidental finding on CT - will need out-patient Endocrinology follow up. 6. Elevated CPK/Mild Rhabdomyolysis - IV hydration and CPK monitoring. DVT Px - SCDs. Lovenox held in event of need for Neurosurgical intervention.
--- NOTE | 2019-10-02 13:58 | CONSULT ---
Consult Detox [facility] Reason for Current Admission/Consult: Mr. Martino is admitted to [facility] after transfer from [facility] s/p Narcan and altered mental status. We are consulted for methadone dosing. Referred by:: Dr. Carmen - History History of Present Illness: Mr. Martino is a 34 yo M with PMH of polysubstance abuse (alcohol and opioid - i.e. heroin) and GERD who was BIBEMS from [facility] after the pt lost consciousness 2/2 a likely overdose. The pt was found to first lose consci ousness at [facility], for which he was treated with 4mg of intranasal narcan and regained consciousness. Subsequently the pt slipped/slid out of a chair and was found on the floor. He was transferred to [facility] for further evaluation. At [facility] he was found have non-displaced, ununited fracture of C1 on CT of cervical spine. In the Ed he was refusing to wear cervical collar and also noted to pull out his IV twice in the ED. ER course was notable for: (1)utox + for methadone and methamphetamine (2)CT cervical spine shows non displaced ununited fractures of C1 right anterior and posterior neural arches of uncertain acuity. fracture at c-spine at C1 (3)received ketamine IM for agitation and being uncooperative; given ativan as well Laboratory Tests 10/01/19 10/01/19 10/01/19 17:31 23:20 23:20 WBC 4.0 RBC 4.10 Hgb 12.5 Hct 37.4 MCV 91.4 MCH 30.5 MCHC 33.4 RDW 12.8 Plt Count 220 D MPV 8.2 D Absolute Neuts (auto) 2.3 Neutrophils % 57.7 Lymphocytes % 31.1 Monocytes % 9.8 Eosinophils % 0.8 Basophils % 0.6 Nucleated RBC % 0 Sodium Potassium Chloride Carbon Dioxide Anion Gap BUN Creatinine Est GFR (CKD-EPI)AfAm Est GFR (CKD-EPI)NonAf Random Glucose Calcium Phosphorus Magnesium Total Bilirubin AST ALT Alkaline Phosphatase Creatine Kinase Creatine Kinase Index CK-MB (CK-2) Total Protein Albumin Opiates Screen Negative Methadone Screen Positive A* Acetaminophen < 2.0 Barbiturate Screen Negative Phencyclidine Screen Negative Ur Amphetamines Screen Positive A* MDMA (Ecstasy) Screen Negative Benzodiazepines Screen Negative Cocaine Screen Negative U Marijuana (THC) Screen Negative Blood Type Antibody Screen 10/01/19 10/01/19 10/02/19 23:20 23:20 00:00 WBC RBC Hgb Hct MCV MCH MCHC RDW Plt Count MPV Absolute Neuts (auto) Neutrophils % Lymphocytes % Monocytes % Eosinophils % Basophils % Nucleated RBC % Sodium 146 H Potassium 3.3 L Chloride 111 H Carbon Dioxide 26 Anion Gap 9 BUN 7.8 Creatinine 0.7 Est GFR (CKD-EPI)AfAm 141.70 Est GFR (CKD-EPI)NonAf 122.26 Random Glucose 113 H Calcium 8.7 Phosphorus Magnesium Total Bilirubin 0.3 AST 55 H ALT 50 Alkaline Phosphatase 114 Creatine Kinase Creatine Kinase Index CK-MB (CK-2) Total Protein 6.6 Albumin 3.3 L Opiates Screen Methadone Screen Acetaminophen Barbiturate Screen Phencyclidine Screen Ur Amphetamines Screen MDMA (Ecstasy) Screen Benzodiazepines Screen Cocaine Screen U Marijuana (THC) Screen Blood Type B POSITIVE B POSITIVE Antibody Screen Negative 10/02/19 10/02/19 10/02/19 05:50 05:50 05:50 WBC 4.4 RBC 4.48 Hgb 13.5 Hct 40.8 MCV 91.2 MCH 30.1 MCHC 33.0 RDW 12.7 Plt Count 212 MPV 8.2 Absolute Neuts (auto) Neutrophils % Lymphocytes % Monocytes % Eosinophils % Basophils % Nucleated RBC % Sodium 142 Potassium 3.9 Chloride 107 Carbon Dioxide 28 Anion Gap 7 L BUN 9.5 Creatinine 0.6 Est GFR (CKD-EPI)AfAm 150.97 Est GFR (CKD-EPI)NonAf 130.26 Random Glucose 95 Calcium 9.0 Phosphorus 3.2 Magnesium 2.2 Total Bilirubin 0.4 AST 57 H ALT 51 Alkaline Phosphatase 121 H Creatine Kinase 754 H Creatine Kinase Index 0.6 CK-MB (CK-2) 4.6 H Total Protein 7.0 Albumin 3.5 Opiates Screen Methadone Screen Acetaminophen Barbiturate Screen Phencyclidine Screen Ur Amphetamines Screen MDMA (Ecstasy) Screen Benzodiazepines Screen Cocaine Screen U Marijuana (THC) Screen Blood Type Antibody Screen Home Medication List Medication Instructions Recorded Confirmed Type Quetiapine Fumarate [Seroquel -] 100 mg PO HS 08/04/16 08/04/16 History Active Medications Generic Name Dose Route Start Last Admin Trade Name Freq PRN Reason Stop Dose Admin Chlordiazepoxide HCl 25 mg 10/02/19 05:00 10/02/19 13:27 Librium - PO 10/02/19 21:01 25 mg Q8H GEOFFREY Administration Chlordiazepoxide HCl 10 mg 10/04/19 00:00 Librium - PO 10/04/19 23:59 Q12H PRN Signs/symptoms of Withdrawal Chlordiazepoxide HCl 10 mg 10/02/19 01:54 Librium - PO 10/03/19 23:59 Q8H PRN Signs/symptoms of Withdrawal Chlordiazepoxide HCl 15 mg 10/03/19 05:00 Librium - PO 10/03/19 21:01 Q8H GEOFFREY Chlordiazepoxide HCl 10 mg 10/04/19 05:00 Librium - PO 10/04/19 21:01 Q8H GEOFFREY Chlordiazepoxide HCl 10 mg 10/05/19 05:00 Librium - PO 10/05/19 05:01 ONCE ONE Enoxaparin Sodium 40 mg 10/02/19 10:00 10/02/19 11:22 Lovenox - SQ Not Given DAILY [facility] Folic Acid 1 mg 10/02/19 10:00 10/02/19 10:44 Folic Acid - PO Not Given DAILY [facility] Lactated Ringer's 1,000 mls @ 125 mls/hr 10/02/19 06:39 10/02/19 06:51 Lactated Ringers Solution IV Not Given ASDIR [facility] Methadone HCl 150 mg 10/02/19 10:00 Dolophine - PO DAILY [facility] Thiamine HCl 100 mg 10/02/19 10:00 10/02/19 10:44 Vitamin B1 - PO Not Given DAILY [facility] Vital Signs Temperature 98.8 F 10/02/19 10:08 Pulse Rate 80 10/02/19 10:08 Respiratory Rate 15 10/02/19 10:08 Blood Pressure 108/71 10/02/19 10:08 O2 Sat by Pulse Oximetry (%) 99 10/02/19 10:08 - History Source History Provided By: Medical Record - Alcohol/Substance Use Hx Alcohol Use: Yes Assessment Plan - Plan Plan: Mr. Martino has a history of opioid use disorder, admitted to [facility] after slip/fall to floor yesterday while at [facility]. Per. Dr. Carmen, pt on Methadone. Imp Opioid use disorder, pt states he is on a methadone maintenance program Plan 1. I called the ED at [facility], asked to speak with pts nurse. Staff tried to find nurse but were unable. I asked that they relay this information to the nurse: please call methadone program to verify dose, ask when he was last give a dose. Please document the verification in the computer. If the dose is verified would recommend he continue his regular dose.
--- NOTE | 2019-10-02 18:09 | CONS ---
DATE OF CONSULTATION: REQUESTING PHYSICIAN: Dr. Collado. CONSULTING PHYSICIAN: Tigre Zhou MD, neurosurgery. CHIEF COMPLAINT: Right C1 fracture. HISTORY OF PRESENT ILLNESS: The patient is a 34-year-old right-handed male with history of polysubstance abuse including alcohol and heroin and gastroesophageal reflux disease, who was brought in from [facility] after he had lost consciousness there, possibly secondary to overdose. He was treated initially with Narcan and regained some consciousness. The patient left the facility reportedly, and then sustained another syncope. He was noted to be lethargic but arousable upon initial presentation in the emergency room. He has difficulty remaining still. He has mild diffuse achiness. He was anxious. He denies any neck pain. PAST MEDICAL HISTORY: Significant for polysubstance abuse. MEDICATION: None per pt. ALLERGIES: No known drug allergies. SOCIAL HISTORY: The patient drinks alcohol, but he drinks hard liquor. He does report heroin and Xanax use in the past. FAMILY HISTORY: Noncontributory. REVIEW OF SYSTEMS: Otherwise negative for other major constitutional, head/neck, cardiovascular, pulmonary, gastrointestinal, genitourinary, endocrinologic, neurologic, or psychological problems. PHYSICAL EXAMINATION: Vital signs: Temperature 98.9, blood pressure 118/72, pulse rate of 78, O2 saturation of 100% on room air. HEENT: Normocephalic, atraumatic, anicteric. Neck: Supple. Coronary: Regular rhythm. Lungs: Clear bilaterally. Abdomen: Benign. Extremities: No signs of DVT. Neurologic: The patient is awake, alert. The patient is sleepy but arousable. He does not fully cooperate. He does follow commands. His speech is minimal by choice. Cranial nerves examination intact 2-12. Motor examination shows at least 4+/5 strength in upper and lower extremities. Sensory examination is intact to light touch. Deep tendon reflexes are 2+. Cerebellar exam demonstrated mild resting tremor. Gait is not tested for safety reasons. LABORATORY EXAMINATION: White blood cell count 4.4, hemoglobin 13.5, serum sodium 142, potassium 3.9. BUN and creatinine are 9.5 and 0.6, respectively. Tox screen positive for methadone and amphetamine. CT scan of the head demonstrated no acute subcranial pathology. There is mild ethmoid sinus mucosal thickening. There is a question of right C1 fracture. There is also possible chronic bilateral nasal bone fracture. CT scan of cervical spine demonstrated a right anterior C1 arch oblique comminuted nondisplaced fracture. The cervical alignment is intact. There is no spondylolisthesis. There is no canal compromise. IMPRESSION: 1. Right C1 anterior ring fracture of unknown acuity. 2. Polysubstance dependence/abuse. RECOMMENDATION: The patient presents with at least 2 syncopal episodes while at [facility]. He denies any significant neck pain back then and does not complain of any neck pain now. He has some diffuse achiness all over by report. The patient does not recall a history of having a cervical spine fracture. Because he has not been wearing his cervical collar in the emergency room, he has been taking it off himself. Given the noncompliance as well as the fact that he is a poor historian, baseline MRI should be obtained to assess the acuity of the fracture. If there is associated edema, this is more likely an acute than chronic fracture. Cervical collar use was advised at the bedside, but the patient is not interested in using it. He was advised of potential adverse consequences of being non-compliance. Fortunately for the patient he reports that he is not symptomatic presently. All questions were answered at bedside. TIGRE ZHOU M.D. [id number] MTDJosiane
--- NOTE | 2019-10-02 18:41 | PN ---
Physical Exam: SUBJECTIVE: Patient seen and examined at bedside. Patient is agitated and refuses to participate in history and physical. Patient appeared lethargic, agitated, with active rigors. OBJECTIVE: Vital Signs Period Temp Pulse Resp BP Sys/Lozano Pulse Ox Last 24 Hr 98.4 F-98.9 F 78-83 15-16 108-127/71-80 99-100 GENERAL: Patient refuses physical exam PSYCH: withrawal, agitation, lethargic Laboratory Results - last 24 hr 10/01/19 10/01/19 10/01/19 23:20 23:20 23:20 WBC 4.0 RBC 4.10 Hgb 12.5 Hct 37.4 MCV 91.4 MCH 30.5 MCHC 33.4 RDW 12.8 Plt Count 220 D MPV 8.2 D Absolute Neuts (auto) 2.3 Neutrophils % 57.7 Lymphocytes % 31.1 Monocytes % 9.8 Eosinophils % 0.8 Basophils % 0.6 Nucleated RBC % 0 Sodium 146 H Potassium 3.3 L Chloride 111 H Carbon Dioxide 26 Anion Gap 9 BUN 7.8 Creatinine 0.7 Est GFR (CKD-EPI)AfAm 141.70 Est GFR (CKD-EPI)NonAf 122.26 Random Glucose 113 H Calcium 8.7 Phosphorus Magnesium Total Bilirubin 0.3 AST 55 H ALT 50 Alkaline Phosphatase 114 Creatine Kinase Creatine Kinase Index CK-MB (CK-2) Total Protein 6.6 Albumin 3.3 L Acetaminophen < 2.0 Blood Type Antibody Screen 10/01/19 10/02/19 10/02/19 23:20 00:00 05:50 WBC 4.4 RBC 4.48 Hgb 13.5 Hct 40.8 MCV 91.2 MCH 30.1 MCHC 33.0 RDW 12.7 Plt Count 212 MPV 8.2 Absolute Neuts (auto) Neutrophils % Lymphocytes % Monocytes % Eosinophils % Basophils % Nucleated RBC % Sodium Potassium Chloride Carbon Dioxide Anion Gap BUN Creatinine Est GFR (CKD-EPI)AfAm Est GFR (CKD-EPI)NonAf Random Glucose Calcium Phosphorus Magnesium Total Bilirubin AST ALT Alkaline Phosphatase Creatine Kinase Creatine Kinase Index CK-MB (CK-2) Total Protein Albumin Acetaminophen Blood Type B POSITIVE B POSITIVE Antibody Screen Negative 10/02/19 10/02/19 05:50 05:50 WBC RBC Hgb Hct MCV MCH MCHC RDW Plt Count MPV Absolute Neuts (auto) Neutrophils % Lymphocytes % Monocytes % Eosinophils % Basophils % Nucleated RBC % Sodium 142 Potassium 3.9 Chloride 107 Carbon Dioxide 28 Anion Gap 7 L BUN 9.5 Creatinine 0.6 Est GFR (CKD-EPI)AfAm 150.97 Est GFR (CKD-EPI)NonAf 130.26 Random Glucose 95 Calcium 9.0 Phosphorus 3.2 Magnesium 2.2 Total Bilirubin 0.4 AST 57 H ALT 51 Alkaline Phosphatase 121 H Creatine Kinase 754 H Creatine Kinase Index 0.6 CK-MB (CK-2) 4.6 H Total Protein 7.0 Albumin 3.5 Acetaminophen Blood Type Antibody Screen Active Medications Generic Name Dose Route Start Last Admin Trade Name Freq PRN Reason Stop Dose Admin Chlordiazepoxide HCl 25 mg 10/02/19 05:00 10/02/19 13:27 Librium - PO 10/02/19 21:01 25 mg Q8H GEOFFREY Administration Chlordiazepoxide HCl 10 mg 10/04/19 00:00 Librium - PO 10/04/19 23:59 Q12H PRN Signs/symptoms of Withdrawal Chlordiazepoxide HCl 10 mg 10/02/19 01:54 Librium - PO 10/03/19 23:59 Q8H PRN Signs/symptoms of Withdrawal Chlordiazepoxide HCl 15 mg 10/03/19 05:00 Librium - PO 10/03/19 21:01 Q8H GEOFFREY Chlordiazepoxide HCl 10 mg 10/04/19 05:00 Librium - PO 10/04/19 21:01 Q8H [facility] Chlordiazepoxide HCl 10 mg 10/05/19 05:00 Librium - PO 10/05/19 05:01 ONCE ONE Enoxaparin Sodium 40 mg 10/02/19 10:00 10/02/19 11:22 Lovenox - SQ Not Given DAILY [facility] Folic Acid 1 mg 10/02/19 10:00 10/02/19 10:44 Folic Acid - PO Not Given DAILY [facility] Lactated Ringer's 1,000 mls @ 125 mls/hr 10/02/19 06:39 10/02/19 06:51 Lactated Ringers Solution IV Not Given ASDIR [facility] Thiamine HCl 100 mg 10/02/19 10:00 10/02/19 10:44 Vitamin B1 - PO Not Given DAILY [facility] ASSESSMENT/PLAN: Gunner is a 34M h/o of Polysubstance Abuse (Alcohol, IVDU, on Methadone). The patient arrived to the hospital due to reports of unresponsiveness in [facility]. Patient had received narcan and is extremely agitated on exam. Patient was found to have a fracture of the C1 spine on CT. # Opioid overdose -encephalopathy - patient had received narcan at [facility] as per Aga Ramirez. - patient agitated and refused physical exam - pupils noted to be constricted - Methadone held due to having had narcan administration - Dr. Moulton (addiction med) consulted # Non-displaced, ununited fracture of C1 - CT scan reveals non-displaced fracture - patient became hostile and removed c-spine collar - patient currently refuses to wear the collar - Neurosurgery recommends C spine MRI - MRI for tonight - patient agitated and refusing #EtOH withdrawal - Placed on Librium protocol - Dr. Moulton consulted recs appreciated - given thiamine and folic acid on admission # INCIDENTAL FINDING: L Thyroid Nodule on CT SCAN - not a cause for concern for this visit - will refer outpatient follow up to endocrine # DVT Prophylaxis - SCD - Possible need for neuro intervention thus heparin held Visit type - Emergency Visit Emergency Visit: Yes ED Registration Date: 10/02/19 Care time: The patient presented to the Emergency Department on the above date and was hospitalized for further evaluation of their emergent condition. - New Patient This patient is new to me today: Yes Date on this admission: 10/02/19 - Critical Care Critical Care patient: No - Discharge Referral Referred to [facility] Med P.C.: No ATTENDING PHYSICIAN STATEMENT I saw and evaluated the patient. I reviewed the resident's note and discussed the case with the resident. I agree with the resident's findings and plan as documented. SUBJECTIVE: OBJECTIVE: ASSESSMENT AND PLAN:
[2019-10-03] MEDS ORDERED: chlordiazePOXIDE 5 MG CAPSULE PO SCH (05:00)
[2019-10-03] MEDS: LACTATED RINGERS SOLUTION 1,000 ML IV SCH (06:39)
[2019-10-03 08:36] LABS: HEMATOCRIT 39.8 % (35.4-49); HEMOGLOBIN 13.2 GM/dL (11.7-16.9); MCHC 33.1 g/dl (32.0-35.9); MEAN CELL VOLUME 90.8 fl (80-96); MEAN PLT VOLUME 8.5 fl (7.5-11.1); PLATELET COUNT 232 K/MM3 (134-434); RBC 4.38 M/mm3 (4.00-5.60); RDW 12.8 % (11.9-15.9); WHITE BLOOD COUNT 5.2 K/mm3 (4.0-10.0)
[2019-10-03] MEDS: FOLIC ACID 1 MG TABLET (FP) PO SCH (09:02)
[2019-10-03] MEDS: THIAMINE HCL 100 MG TABLET (FP) PO SCH (09:02)
[2019-10-03] MEDS: ENOXAPARIN NA (PORCINE) 40 MG/0.4 ML DISP.SYRIN SQ SCH (09:02)
--- NOTE | 2019-10-03 09:04 | PN ---
S Progress Note Note: Notes reviewed. Methadone 150 mg verified with pts program Dr. Moulton did not make recommendations as is stated in the 18:25 note, he did receive a microblog. Imp: Opioid use disorder on agonist therapy Plan: restart methadone 150 mg qd
[2019-10-03 09:07] LABS: BLOOD UREA NITROGEN 11.3 mg/dL (7-18); CALCIUM 8.9 mg/dL (8.5-10.1); CREATININE 0.7 mg/dL (0.55-1.3); PHOSPHOROUS 3.3 mg/dL (2.5-4.9); POTASSIUM 3.8 mmol/L (3.5-5.1)
--- NOTE | 2019-10-03 10:15 | PN ---
Progress Note (short form) - Note Progress Note: NEUROSURGERY Pt examined on 6S States that he had a neck fracture when he was Pt non-compliant with collar Denies any neck pain, shoulder pain R arm pain due to trauma a year ago PE; AF, VSS HEENT- NC/AT; Neck- supple; Cor- RR; Lungs- CTA B; Abd- benign; Ext- no sign of DVT CN- non-focal; Motor- at least 4+ B UE/LE except R UE pain limited 4-; Sensation- intact LT; DTR- 2+ Head CT- negative C spine CT- R anterior C-1 comminuted non-displaced fx; age cannot be definitely determined MRI Cspine- R ant C1 ring fracture with sift tissue prominence; no significant marrow edema to indicate acute process; facet hypertrophy with mild L C304 foramenal narrowing; alignment good, no canal involvement R ant C-1 ring fx, subcaute to chronic Advised collar x 10 weeks as a precaution but pt adamant that fx is old and does not want to use it Advised against recreational drug use Advised f/u with PMD, whom he has downtown Will sign off Drug rehab
[2019-10-03 10:27] VITALS: BP 138/78; PULSE 74; TEMP 98.8
--- NOTE | 2019-10-03 11:30 | EKG ---
Test Reason : Blood Pressure : / mmHG Vent. Rate : 060 BPM Atrial Rate : 060 BPM P-R Int : 120 ms QRS Dur : 102 ms QT Int : 452 ms P-R-T Axes : 066 066 069 degrees QTc Int : 452 ms NORMAL SINUS RHYTHM NORMAL ECG WHEN COMPARED WITH ECG OF 04-AUG-2016 22:24, NO SIGNIFICANT CHANGE WAS FOUND Confirmed by FIOR DE LA GARZA MD ([id number]) on 10/03/2019 11:30:25 AM Referred By: Confirmed By:FIOR DE LA GARZA MD
--- NOTE | 2019-10-03 15:19 | DS ---
Physical Exam: SUBJECTIVE: Patient seen and examined at bedside. Patient is more cooperative today and demands methadone. Patient is growing impatient and wishes to sign out AMA. Patient was explained the risks involved with leaving AMA and wanted to go back to [facility] for his methadone. OBJECTIVE: Vital Signs Period Temp Pulse Resp BP Sys/Lozano Pulse Ox Last 24 Hr 98.2 F-98.8 F 60-74 17-18 121-146/74-88 96-100 PHYSICAL EXAM GENERAL: The patient is awake, alert, and fully oriented, in no acute distress. HEAD: Normal with no signs of trauma. EYES: PERRL, extraocular movements intact, sclera anicteric, conjunctiva clear. LUNGS: Breath sounds equal, clear to auscultation bilaterally, no wheezes, no crackles, no accessory muscle use. HEART: Regular rate and rhythm, S1, S2 without murmur, rub or gallop. ABDOMEN: Soft, nontender, nondistended, normoactive bowel sounds, no guarding, no rebound, no hepatosplenomegaly, no masses. EXTREMITIES: Right arm deformity PSYCH: Normal mood, normal affect. LABS Laboratory Results - last 24 hr 10/03/19 10/03/19 07:45 07:45 WBC 5.2 RBC 4.38 Hgb 13.2 Hct 39.8 MCV 90.8 MCH 30.0 MCHC 33.1 RDW 12.8 Plt Count 232 MPV 8.5 Sodium 141 Potassium 3.8 Chloride 107 Carbon Dioxide 23 Anion Gap 10 BUN 11.3 Creatinine 0.7 Est GFR (CKD-EPI)AfAm 141.70 Est GFR (CKD-EPI)NonAf 122.26 Random Glucose 94 Calcium 8.9 Phosphorus 3.3 Magnesium 2.0 Creatine Kinase 303 Creatine Kinase Index 0.6 CK-MB (CK-2) 1.9 HOSPITAL COURSE: HEAD CT Impression: No CT evidence of acute intracranial pathology. Mild bilateral ethmoid sinus mucosal thickening. There is partial imaging of a linear lucency along the superior border of the right C1 anterior neural arch (transaxial image 1) which could be artifactual in nature versus representing a fracture line. Cervical spine CT evaluation may be performed. bilateral nasal bone deformity is noted probably representing chronic fractures. c-SPINE CT - Nondisplaced ununited fractures of the C1 right anterior and posterior neural arches are noted which are of uncertain acuity on the basis of this exam. Additional evaluation utilizing MRI may be considered. A 1.2 x 0.9 cm left thyroid lobe nodule is seen with peripheral rim calcification. Sonographic evaluation is suggested. C-SPINE MRI Findings are noted as discussed above suggesting that nondisplaced fractures involving the right C1 anterior and posterior neural arches identified on CT are either acute or subacute. There is partial imaging of an approximately 1.2 cm left thyroid lobe nodule. Sonographic correlation is suggested. ELBOW XRAY 2 views of the right elbow reveal an old fracture dislocation involving the elbow joint with soft tissue calcification and bone fragments. For more complete evaluation, further imaging with CT may be of help. Date of Admission:10/02/19 Gunner is a 34M with a h/o Polysubstance abuse (EtOH/heroine dependence) and gerd. The patient was found unresponsive at [facility] and was given 4mg of intranasal narcan. The patient regained consciousness shortly therafter and was transfered to [facility] ED. The patient became extremely agitated in the emergency department. CT scan reveal an acute subacute fracture of the C1 vertebrae with incidental finding of a 0.9x1.3cm thyroid nodule. Neurosurgery had been consulted and recommended C spine MRI. F/u Mri reveals no involvement with the spinal cord and no neurosurgical intervention was needed. The patient was also noted to have a slight deformity of his right limb during history and physical and a right extremity x-ray reveals an old fracture with calcification of his right elbow. The patient was transferred to [facility] where he was on 1to1 watch and demanding his methadone. He explains that he needs to go to the methadone clinic in [place] [facility] to get his methadone because it is taking too long to receive it here. The patient requested to leave [place] and was explained the risks involved that are but not limited to: seizures, paralysis, disability, or . DATE OF AMA 10/03/2019 Minutes to complete discharge: 40 Discharge Summary Problems reviewed: Yes Reason For Visit: FRACTURE OF CERVICAL VERTEBRA, POLYSUBSTANCE ABUSE Condition: Stable - Instructions Diet, Activity, Other Instructions: Patient was found minimally responsive at [facility]. Mentation improved after Narcan administration. CT imaging showed C1 fracture with incidental finding of thyroid nodule needed to have outpatient follow up. MRI showed the same findings, possibly as acute vs subacute. Patient denied being on heroin and reported his lethargy and unresponsiveness to alcohol intoxication. Patient became agitated for not receiving his methadone 150mg - IM team waiting for [facility] and [facility] for verification of dosage. You wished to sign out of the hospital against medical advice while we were treating you. You were explained the risk involved with leaving the hospital such as but not limited to seizures, paralysis, disability, or . Referrals: Tigre Martinez MD [Staff Physician] - 2 Weeks (Please discuss your C1 fracture) Sterling Woodall DO [Staff Physician] - 2 Weeks (follow-up for your Right elbow fracture) Fransisca Cisneros MD [Staff Physician] - 2 Weeks (thyroid nodule) Disposition: AGAINST MEDICAL ADVICE - Home Medications Comprehensive Discharge Medication List: Ambulatory Orders Quetiapine Fumarate [Seroquel -] 100 mg PO HS 08/04/16 Quetiapine Fumarate [Seroquel] 100 mg PO HS #30 tablet 08/05/16 Pantoprazole Sodium [Protonix -] 40 mg PO DAILY #30 cap 08/09/16 This patient is new to me today: No Emergency Visit: Yes ED Registration Date: 10/02/19 Care time: The patient presented to the Emergency Department on the above date and was hospitalized for further evaluation of their emergent condition. Critical Care patient: No - Discharge Referral Referred to [facility] Med P.C.: No ATTENDING PHYSICIAN STATEMENT I saw and evaluated the patient. I reviewed the resident's note and discussed the case with the resident. I agree with the resident's findings and plan as documented. SUBJECTIVE: OBJECTIVE: ASSESSMENT AND PLAN:
--- NOTE | 2019-10-03 17:35 | PN ---
Teaching Attending Note Name of Resident: Roshan Parry ATTENDING PHYSICIAN STATEMENT I saw and evaluated the patient. I reviewed the resident's note and discussed the case with the resident. I agree with the resident's findings and plan as documented. SUBJECTIVE: Wants to leave AMA despite being reassured that he will get his Methadone. No headache/visual disturbance/limb numbness or weakness/abdominal pain/nausea/vomiting. no hallucinations/seizures. OBJECTIVE: Afebrile, Hemodynamically Stable. No tremor. Last Vital Signs Temp Pulse Resp BP Pulse Ox 98.8 F 74 18 138/78 96 10/03/19 09:35 10/03/19 09:35 10/03/19 09:35 10/03/19 09:35 10/03/19 09:35 Heart - S1, S2, RRR Lungs - clear to auscultation Abdomen - Soft, non-tender. Bowel Sounds normal. Extremities - no edema, no calf tenderness. Neuro - AAO x 3, LUDIVINA. Tone/Power normal. Laboratory Results - last 24 hr 10/03/19 10/03/19 07:45 07:45 WBC 5.2 RBC 4.38 Hgb 13.2 Hct 39.8 MCV 90.8 MCH 30.0 MCHC 33.1 RDW 12.8 Plt Count 232 MPV 8.5 Sodium 141 Potassium 3.8 Chloride 107 Carbon Dioxide 23 Anion Gap 10 BUN 11.3 Creatinine 0.7 Est GFR (CKD-EPI)AfAm 141.70 Est GFR (CKD-EPI)NonAf 122.26 Random Glucose 94 Calcium 8.9 Phosphorus 3.3 Magnesium 2.0 Creatine Kinase 303 Creatine Kinase Index 0.6 CK-MB (CK-2) 1.9 ASSESSMENT AND PLAN: 34 year old male with history of Polysubstance Abuse (Alcohol, IVDU, on Methadone), sent to the ED from [facility] after an unresponsive episode requiring Narcan. He was found have non-displaced, un-united fracture of C1 on CT of cervical spine. 1. Acute Toxic Encephalopathy likely due to Opioid overdose - resolved, now AAO x 3. s/p Narcan at [facility]. More awake - oriented x 3. LUDIVINA. Hx polysubstance abuse - on methadone, dose confirmed, to be resumed. Urine tox - Methadone positive, Amphetamine positive. Addiction medicine following in the chart. Patient insists on leaving against medical advice. He was counselled regarding risks including worsening alcohol withdrawal, seizure, collapse, head injury, paralysis due to C1 fracture which may be unstable, disability, . He was of sound mind and had capacity for medical decision making when he accepted responsibility for his decision to leave AMA. He signed appropriate paperwork. 2. Acute Alcohol Withdrawal at - placed on Librium detox protocol. No active evidence of withdrawal currently No tremor/diaphoresis/tachycardia/fever/AMS. Addiction medicine input regarding this requested MVI, Thiamine, Folic Acid. 3. Acute/Subacute non-displaced, un-united fracture of C1, confirmed on MRI Refusing C-Spine Collar despite advice by Neuro[facility] to use for 10 weeks. Neurologically intact at this time. Given Neurosurgery referral as out-patient. 4. R Elbow deformity - appears chronic, not acutely tender. XRay R Elbow confirms old fracture - non-tender on exam. Patient does not want to have in-patient Ortho consult. Will refer to Ortho as out-patient. 5. L Thyroid Nodule, incidental finding on CT - referred to Endocrinology for out-patient follow up. 6. Elevated CPK/Mild Rhabdomyolysis - resolved with IV hydration.
[2019-10-04] MEDS ORDERED: chlordiazePOXIDE HCL 10 MG CAPSULE PO PRN
[2019-10-04] MEDS ORDERED: chlordiazePOXIDE HCL 10 MG CAPSULE PO SCH (05:00)
[2019-10-04] MEDS ORDERED: METHADONE 120 MG, METHADONE 30 MG PO SCH (06:00)
[2019-10-04] MEDS ORDERED: METHADONE HCL 10 MG TABLET PO SCH (06:00)
[2019-10-05] MEDS ORDERED: chlordiazePOXIDE HCL 10 MG CAPSULE PO ONE (05:00)
== END 2019-10-03 10:37 | disposition left against medical advice (07) | DRG 812 ==
LOC: JER 16:52 → JERBED 10-02 00:52 → J6S 10-02 22:48
PROVIDERS: ADMIT Internal Medicine
DX: T40.2X1A Poisoning by other opioids, accidental (unintentional), initial encounter (principal); G92 Toxic encephalopathy; S12.001A Unspecified nondisplaced fracture of first cervical vertebra, initial encounter for closed fracture; E88.09 Other disorders of plasma-protein metabolism, not elsewhere classified; M62.82 Rhabdomyolysis; F11.20 Opioid dependence, uncomplicated; K21.9 Gastro-esophageal reflux disease without esophagitis; R55 Syncope and collapse; E87.6 Hypokalemia; Y92.89 Other specified places as the place of occurrence of the external cause; F10.230 Alcohol dependence with withdrawal, uncomplicated; W19.XXXA Unspecified fall, initial encounter; Y99.8 Other external cause status; E04.1 Nontoxic single thyroid nodule; M21.921 Unspecified acquired deformity of right upper arm; Z91.19 Patient's noncompliance with other medical treatment and regimen
CPT/HCPCS: 36415; 70450-TC; 71045-TC-FY; 72125-TC; 72141-TC; 73070-TC-RT-FY; 80048; 80053; 80307; 82550; 82553; 82962; 83735; 84100; 85025; 85027; 86850; 86900; 86901; 93005; 93010; 99285-25; U0003

== ENCOUNTER 2022-07-17 11:20 | Inpatient (IN) | payer OTHER ==
[2022-07-17 12:55] VITALS: BMI 24.0
[2022-07-17] MEDS ORDERED: BENZOCAINE/MENTHOL (CHLORASEPTIC ) LOZENGE MM PRN (13:55)
[2022-07-17] MEDS ORDERED: POLYETHYLENE GLYCOL (HEALTHYLAX) 3350 17 GM PACKET PO PRN (13:55)
[2022-07-17] MEDS ORDERED: DICYCLOMINE HCL 10 MG CAPSULE PO PRN (13:55)
[2022-07-17] MEDS ORDERED: IBUPROFEN 400 MG TABLET (FP) PO PRN (13:55)
[2022-07-17] MEDS ORDERED: ACETAMINOPHEN 325 MG TABLET (FP) PO PRN (13:55)
[2022-07-17] MEDS ORDERED: ONDANSETRON *ODT* 4 MG TABLET SL PRN (13:55)
[2022-07-17] MEDS ORDERED: MAGNESIUM HYDROX 2400MG/30ML ORAL SUSPENSION 30 ML CUP PO PRN (13:55)
[2022-07-17] MEDS ORDERED: LOPERAMIDE HCL 2 MG CAPSULE PO PRN (13:55)
[2022-07-17] MEDS ORDERED: NALOXONE HCL (KLOXXADO) 8 MG SPRAY NS PRN (13:55)
[2022-07-17] MEDS ORDERED: MAG HYDROX/AL HYDROX/SIMETH 30 ML UNIT-DOSE CUP PO PRN (13:55)
[2022-07-17] MEDS ORDERED: IBUPROFEN 600 MG TABLET (FP) PO PRN (13:55)
[2022-07-17] MEDS ORDERED: BENZONATATE 200 MG CAPSULE PO PRN (13:55)
[2022-07-17] MEDS ORDERED: BISMUTH SUBSALICYLATE 524 MG/30 ML PO PRN (13:55)
[2022-07-17] MEDS ORDERED: guaiFENesin 600 MG TABLET.ER (FP) PO PRN (13:55)
[2022-07-17] MEDS ORDERED: NALOXONE HCL 0.4 MG/ML VIAL IM PRN (13:55)
[2022-07-17] MEDS ORDERED: chlordiazePOXIDE HCL 25 MG CAPSULE PO PRN (18:03)
[2022-07-17] MEDS: hydrOXYzine PAMOATE 25 MG CAPSULE (FP) PO PRN (18:12)
[2022-07-17] MEDS: chlordiazePOXIDE HCL 25 MG CAPSULE PO SCH (22:59)
[2022-07-17] MEDS: METHOCARBAMOL 500 MG TABLET PO PRN (22:59)
[2022-07-17] MEDS: MELATONIN 5 MG TABLETS PO SCH (22:59)
[2022-07-17] MEDS: THIAMINE HCL 100 MG TABLET (FP) PO SCH (22:59)
[2022-07-18] MEDS: chlordiazePOXIDE HCL 25 MG CAPSULE PO SCH ×2 (05:42→10:23)
[2022-07-18] MEDS: methaDONE HCL 40 MG DISPERSABLE TABLET PO SCH (10:21)
[2022-07-18] MEDS: PRENATAL VITAMINS W/ FOLIC ACID TABLET (FP) PO SCH (10:24)
[2022-07-18 12:21] LABS: HEMATOCRIT 38.9 % (35.4-49); HEMOGLOBIN 13.3 GM/dL (11.7-16.9); MCH 31.2 pg (25.7-33.7); MCHC 34.3 g/dl (32.0-35.9); MEAN CELL VOLUME 90.9 fl (80-96); MEAN PLT VOLUME 8.1 fl (7.5-11.1); PLATELET COUNT 185 10^3/uL (134-434); RBC 4.27 M/mm3 (4.00-5.60); RDW 13.5 % (11.9-15.9); WHITE BLOOD COUNT 4.3 K/mm3 (4.0-10.0)
[2022-07-18 12:25] LABS: POTASSIUM 3.5 mmol/L (3.5-5.1)
[2022-07-18 12:28] LABS: CALCIUM 9.5 mg/dL (8.5-10.1)
[2022-07-18 12:29] LABS: ALBUMIN 3.4 g/dl (3.4-5.0); BLOOD UREA NITROGEN 12.2 mg/dL (7-18)
[2022-07-18 12:32] LABS: BILIRUBIN,TOTAL 0.8 mg/dL (0.2-1); CREATININE 0.6 mg/dL (0.55-1.3)
[2022-07-18 12:33] LABS: TOT PROT 7.5 g/dl (6.4-8.2)
[2022-07-18] MEDS ORDERED: LORazepam 1 MG TABLET PO PRN (14:16)
[2022-07-18] MEDS: LORazepam 2 MG TABLET PO SCH ×3 (17:29→22:48)
[2022-07-18] MEDS: hydrOXYzine PAMOATE 25 MG CAPSULE (FP) PO PRN ×2 (18:24→18:30)
[2022-07-18] MEDS: MELATONIN 5 MG TABLETS PO SCH (22:47)
[2022-07-18] MEDS: THIAMINE HCL 100 MG TABLET (FP) PO SCH (22:48)
[2022-07-19] MEDS ORDERED: chlordiazePOXIDE HCL 25 MG CAPSULE PO SCH (05:00)
[2022-07-19] MEDS: LORazepam 2 MG TABLET PO SCH ×2 (05:47→10:03)
[2022-07-19] MEDS: methaDONE HCL 40 MG DISPERSABLE TABLET PO SCH (05:49)
[2022-07-19 09:57] VITALS: BP 125/83; PULSE 89; RESP 18; TEMP 97.3
[2022-07-19] MEDS: PRENATAL VITAMINS W/ FOLIC ACID TABLET (FP) PO SCH (10:03)
[2022-07-19] MEDS: METHOCARBAMOL 500 MG TABLET PO PRN (10:03)
[2022-07-19] MEDS: hydrOXYzine PAMOATE 25 MG CAPSULE (FP) PO PRN (10:03)
[2022-07-19 12:47] LABS: HIV INTERPRETATION NEGATIVE (NEGATIVE)
[2022-07-20] MEDS ORDERED: LORazepam 0.5 MG TABLET PO PRN
[2022-07-20] MEDS ORDERED: chlordiazePOXIDE HCL 10 MG CAPSULE PO PRN
[2022-07-20] MEDS ORDERED: chlordiazePOXIDE HCL 10 MG CAPSULE PO SCH (05:00)
[2022-07-20] MEDS ORDERED: LORazepam 1 MG TABLET PO SCH (05:00)
[2022-07-21] MEDS ORDERED: chlordiazePOXIDE HCL 10 MG CAPSULE PO SCH (05:00)
[2022-07-21] MEDS ORDERED: LORazepam 0.5 MG TABLET PO SCH (05:00)
[2022-07-22] MEDS ORDERED: chlordiazePOXIDE HCL 10 MG CAPSULE PO ONE (05:00)
== END 2022-07-19 11:59 | disposition left against medical advice (07) | DRG 770 ==
LOC: YASAS 11:20 → Y6N 14:08
PROVIDERS: ADMIT Allergy & Immunology; ATTEND Surgery
PROC: HZ2ZZZZ Detoxification Services for Substance Abuse Treatment (ICD-10-PCS; principal; 2022-07-17)
DX: F10.230 Alcohol dependence with withdrawal, uncomplicated (principal); F11.20 Opioid dependence, uncomplicated; F19.282 Other psychoactive substance dependence with psychoactive substance-induced sleep disorder; F10.282 Alcohol dependence with alcohol-induced sleep disorder; F41.9 Anxiety disorder, unspecified; K21.9 Gastro-esophageal reflux disease without esophagitis; R74.8 Abnormal levels of other serum enzymes; Z87.891 Personal history of nicotine dependence
CPT/HCPCS: 36415; 80053; 85027; 86780; 87389; C9803-CS; U0003; U0005